=== PATIENT | male | born 1965 ===

== ENCOUNTER → 2018-09-12 | Outpatient (CLI) | payer SELFPAY | END | disposition home or self-care (01) | LOC: LAB SHORT 14:08 → LAB UCHC 14:08 | DX: E11.65 Type 2 diabetes mellitus with hyperglycemia (principal) | CPT/HCPCS: 82043 ==

== ENCOUNTER → 2019-12-21 | Outpatient (CLI) | payer BC ==
[2019-12-21 18:52] LABS: BASOPHILS ABSOLUTE AUTO 0.03 K/mm3 (0.00-0.23); BASOPHILS PERCENT AUTO 0 % (0-2); EOSINOPHILS ABSOLUTE AUTO 0.28 K/mm3 (0.00-0.68); EOSINOPHILS PERCENT AUTO 3 % (0-6); Hematocrit 41.6 % (37.0-53.0); Hemoglobin 13.9 g/dL (13.5-17.5); IMMATURE GRAN ABSOLUTE AUTO 0.02 K/mm3 (0.00-0.10); IMMATURE GRAN PERCENT AUTO 0 % (0-1); LYMPHOCYTES ABSOLUTE AUTO 3.46 K/mm3 (0.84-5.20); LYMPHOCYTES PERCENT AUTO 35 % (21-46); MONOCYTES ABSOLUTE AUTO 0.82 K/mm3 (0.16-1.47); MONOCYTES PERCENT AUTO 8 % (4-13); Mean Corpuscular HGB Conc 33.4 g/dL (31.5-36.5); Mean Corpuscular Volume 90 fL (80-100); Mean Platelet Volume 12.2 fL (9.1-12.4); NEUTROPHILS ABSOLUTE AUTO 5.28 K/mm3 (1.96-9.15); NEUTROPHILS PERCENT AUTO 53 % (41-73); Platelet Count 277 K/mm3 (150-400); RDW Coefficient Variation 12.1 % (11.7-14.2); RDW Standard Deviation 39.8 fL (35.1-46.3); Red Blood Cell Count 4.63 M/mm3 (4.30-5.90); White Blood Cell Count 9.89 K/mm3 (4.00-11.30)
[2019-12-21 19:02] LABS: Alanine Aminotransfer (ALT/SGP 47 U/L (12-78); Albumin, Blood 3.9 g/dL (3.4-5.0); Alk Phos 102 U/L (50-136); Anion Gap 4 mmol/L (6-16); Aspartate Aminotrans (AST/SGOT 22 U/L (12-37); Bilirubin, Total 0.2 mg/dL (0.1-1.0); Blood Urea Nitrogen 15 mg/dL (8-24); Bun/Creatinine Ratio 23.4 (12.0-20.0); CHOL/HDL RATIO 3.5; CO2, Blood 29 mmol/L (21-32); Calcium, Blood 9.5 mg/dL (8.5-10.1); Chloride, Blood 105 mmol/L (98-108); Cholesterol 180 mg/dL (50-200); Creatinine, Blood 0.64 mg/dL (0.60-1.20); Globulin, Blood 3.9 g/dL (2.2-4.0); Glomerular Filtration Rate >60 (60-); Glucose, Blood 107 mg/dL (70-99); HDL Cholesterol 52 mg/dL (>39); Low Density Lipoprotein Chol 106 mg/dL (0-110); Potassium, Blood 3.9 mmol/L (3.5-5.5); Sodium, Blood 138 mmol/L (136-145); Total Protein, Blood 7.8 g/dL (6.4-8.2); Triglycerides 112 mg/dL (30-160); Very Low Density Lipoprot Chol 22 mg/dL (6-32)
== END | disposition home or self-care (01) ==
LOC: LAB SHORT 18:17 → LAB 18:17 → LAB FUT 12-20 16:30 → EDSTATUS 12-20 16:30
PROVIDERS: Family Medicine
DX: E11.22 Type 2 diabetes mellitus with diabetic chronic kidney disease (principal); N18.9 Chronic kidney disease, unspecified
CPT/HCPCS: 80053; 80061; 85025

== ENCOUNTER → 2021-06-26 | Outpatient (CLI) | payer BC ==
[2021-06-26 19:48] LABS: Alanine Aminotransfer (ALT/SGP 34 U/L (12-78); Albumin, Blood 3.2 g/dL (3.4-5.0); Albumin/Globulin Ratio 0.8 (0.8-1.8); Alk Phos 116 U/L (50-136); Anion Gap 8 mmol/L (6-16); Aspartate Aminotrans (AST/SGOT 20 U/L (12-37); Bilirubin, Total 0.2 mg/dL (0.1-1.0); Blood Urea Nitrogen 23 mg/dL (8-24); Bun/Creatinine Ratio 24.7 (12.0-20.0); CHOL/HDL RATIO 3.8; CO2, Blood 26 mmol/L (21-32); Chloride, Blood 103 mmol/L (98-108); Cholesterol 214 mg/dL (50-200); Creatinine, Blood 0.93 mg/dL (0.60-1.20); Globulin, Blood 3.9 g/dL (2.2-4.0); Glomerular Filtration Rate >60 (60-); Glucose, Blood 291 mg/dL (70-99); HDL Cholesterol 56 mg/dL (>39); LDL/HDL RATIO 1.7; Low Density Lipoprotein Chol 97 mg/dL (0-110); Potassium, Blood 4.2 mmol/L (3.5-5.5); Sodium, Blood 137 mmol/L (136-145); Total Protein, Blood 7.1 g/dL (6.4-8.2); Triglycerides 306 mg/dL (30-160); Very Low Density Lipoprot Chol 61 mg/dL (6-32)
== END | disposition home or self-care (01) ==
LOC: LAB SHORT 17:56
PROVIDERS: Student in an Organized Health Care Education/Training Program
DX: E11.65 Type 2 diabetes mellitus with hyperglycemia (principal); E11.22 Type 2 diabetes mellitus with diabetic chronic kidney disease; N18.9 Chronic kidney disease, unspecified; E78.5 Hyperlipidemia, unspecified
CPT/HCPCS: 80053; 80061; 82043

== ENCOUNTER 2021-10-03 16:08 | Emergency (ER) | payer SELFPAY ==
[~2021-10-03] VITALS: Ht 157.5 cm; Wt 59.0 kg
[2021-10-03] MEDS ORDERED: Tylenol325 MG PO (18:01)
== END 2021-10-03 18:18 | disposition home or self-care (01) ==
LOC: ER 16:08
DX: J02.8 Acute pharyngitis due to other specified organisms (principal)
CPT/HCPCS: 87081; 87430; 99283

== ENCOUNTER → 2022-05-09 | Outpatient (CLI) | payer BC ==
[~2022-05-09] MED LIST: GLIP2.5ER; METFORMIN HCL500 M2 PO; Tylenol325 MG PO
== END | disposition home or self-care (01) ==
LOC: LAB 15:48 → LAB SHORT 15:48
DX: R30.9 Painful micturition, unspecified (principal)
CPT/HCPCS: 87086

== ENCOUNTER 2022-05-14 17:33 | Inpatient (IN) | payer BC ==
[~2022-05-14] VITALS: Ht 157.5 cm; Wt 53.5 kg
[~2022-05-14 17:33] MED LIST changes: -GLIP2.5ER; -METFORMIN HCL500 M2 PO
[2022-05-14 18:17] LABS: Hematocrit 31.1 % (37.0-53.0); Hemoglobin 10.7 g/dL (13.5-17.5); Mean Corpuscular HGB 30.7 pg (26.0-34.0); Mean Corpuscular HGB Conc 34.4 g/dL (31.5-36.5); Mean Corpuscular Volume 89 fL (80-100); Mean Platelet Volume 10.9 fL (9.1-12.4); Platelet Count 426 K/mm3 (150-400); RDW Coefficient Variation 11.8 % (11.7-14.2); RDW Standard Deviation 37.9 fL (35.1-46.3); Red Blood Cell Count 3.49 M/mm3 (4.30-5.90)
[2022-05-14 18:39] LABS: Albumin, Blood 2.5 g/dL (3.4-5.0); Albumin/Globulin Ratio 0.5 (0.8-1.8); Bilirubin, Total 0.2 mg/dL (0.1-1.0); Bun/Creatinine Ratio 21.1 (12.0-20.0); Calcium, Blood 9.1 mg/dL (8.5-10.1); Creatinine, Blood 1.28 mg/dL (0.60-1.20); Globulin, Blood 5.3 g/dL (2.2-4.0); Potassium, Blood 5.1 mmol/L (3.5-5.5); Total Protein, Blood 7.8 g/dL (6.4-8.2)
[2022-05-14 18:50] LABS: White Blood Cell Count 20.24 K/mm3 (4.00-11.30)
[2022-05-14 18:53] LABS: BAND PERCENT MAN 5 % (0-8); BASOPHILS PERCENT MAN 0 % (0-2); EOSINOPHILS PERCENT MAN 0 % (0-6); LYMPHOCYTES ABSOLUTE MAN 1.82 K/mm3 (0.84-5.20); LYMPHOCYTES PERCENT MAN 9 % (21-46); MONOCYTES ABSOLUTE MAN 1.21 K/mm3 (0.16-1.47); MONOCYTES PERCENT MAN 6 % (4-13); SEG NEUTROPHILS PERCENT MAN 80 % (41-73); TOTAL CELLS COUNTED 200
[2022-05-14 18:54] LABS: OTHER CELL PERCENT MAN 1 % (0-0)
[2022-05-14 22:09] LABS: Influenza A, PCR NEGATIVE (NEGATIVE); Influenza B, PCR NEGATIVE (NEGATIVE); Resp Syncytial Virus, PCR NEGATIVE (NEGATIVE); SARS-Cov-2 (COVID-19) PCR, MMC NEGATIVE (NEGATIVE)
[2022-05-14] MEDS ORDERED: METFORMIN HCL500 M2 PO (22:17)
[2022-05-14] MEDS ORDERED: GLIP2.5ER (22:17)
--- NOTE | 2022-05-14 22:37 | NUR ---
05/14/22 2237 Minnie Dodge NO PREOP ANTIBIOTICS ORDERED PER PATIENT IS ON ANTIBIOTICS.
[2022-05-15 05:08] LABS: BASOPHILS ABSOLUTE AUTO 0.02 K/mm3 (0.00-0.23); BASOPHILS PERCENT AUTO 0 % (0-2); EOSINOPHILS PERCENT AUTO 0 % (0-6); Hematocrit 27.5 % (37.0-53.0); Hemoglobin 9.5 g/dL (13.5-17.5); IMMATURE GRAN PERCENT AUTO 1 % (0-1); LYMPHOCYTES ABSOLUTE AUTO 0.77 K/mm3 (0.84-5.20); LYMPHOCYTES PERCENT AUTO 5 % (21-46); MONOCYTES ABSOLUTE AUTO 0.12 K/mm3 (0.16-1.47); MONOCYTES PERCENT AUTO 1 % (4-13); Mean Corpuscular HGB 30.9 pg (26.0-34.0); Mean Corpuscular HGB Conc 34.5 g/dL (31.5-36.5); Mean Corpuscular Volume 90 fL (80-100); Mean Platelet Volume 11.2 fL (9.1-12.4); NEUTROPHILS ABSOLUTE AUTO 13.21 K/mm3 (1.96-9.15); NEUTROPHILS PERCENT AUTO 93 % (41-73); Platelet Count 444 K/mm3 (150-400); RDW Coefficient Variation 11.9 % (11.7-14.2); RDW Standard Deviation 38.1 fL (35.1-46.3); Red Blood Cell Count 3.07 M/mm3 (4.30-5.90); White Blood Cell Count 14.22 K/mm3 (4.00-11.30)
[2022-05-15 05:31] LABS: Bun/Creatinine Ratio 22.4 (12.0-20.0); Calcium, Blood 8.1 mg/dL (8.5-10.1); Creatinine, Blood 1.16 mg/dL (0.60-1.20); Potassium, Blood 5.3 mmol/L (3.5-5.5)
--- NOTE | 2022-05-15 06:05 | NUR ---
SHIFT SUMMARY: PT IS ALERT AND ORIENTED. PT IS CALM AND COOPERATIVE WITH CARE. PT IS GUAMANIAN SPEAKING, STOCK CONTROL SUPERVISOR PHONE IN ROOM. PT DENIES PAIN, NAUSEA, VOMITING, AND SOB. PT ORDERED NON-WEIGHT BEARING ON L. FOOT, NOT OUT OF BED OVERNIGHT. FLUIDS RUNNING ORDERED. PT SLEPT MUCH OF THE NIGHT WHEN NOT DISTURBED. NO ACUTE CHANGES OR COMPLICATIONS THIS SHIFT. WILL CONTINUE TO MONITOR.
--- NOTE | 2022-05-15 07:33 | NUR ---
ASSUMED CARE: PT ALERT IN ROOM, RESTING IN BED. CAY[place] ISLANDER SPEAKING ONLY, APPEARS TO UNDERSTAND SOME MONGOLIAN. NO ACUTE NEEDS AT THIS TIME.
--- NOTE | 2022-05-15 16:47 | NUR ---
DR ANGEL CAME TO SEE PT AND CHANGED DRESSING TO LEFT FOOT. STATES HE WANTS PT ON IV ABX UNTIL WOUND CULTURES COME BACK AND THEN 1 MONTH OF ORAL ANTIBIOTICS AFTER THAT. TOLD PT NO WORK FOR 1 MONTH AND TO FOLLOW UP IN HIS OFFICE 1 WEEK AFTER DISCHARGE. THESE INSTRUCTIONS WERE EXPLAINED TO PT WITH THE BEAD FORMING MACHINE OPERATOR PHONE AND RELAYED TO DR BIRD.
--- NOTE | 2022-05-15 18:46 | NUR ---
SHIFT SUMMARY: PT MEDICATED X1 WITH TYLENOL FOR PAIN AND STATES IMPROVEMENT. DR ANGEL CAME TO SEE PT AND STATES DC ON ORAL ABX AFTER WOUND CULTURES COME BACK. FAMILY AT BEDSIDE. HUMAN RESOURCES DESIGNATE PHONE USED T/O DAY NEEDED. DENIES NEEDS OR CONCERNS.
--- NOTE | 2022-05-16 06:17 | NUR ---
SHIFT SUMMARY: PT IS ALERT AND ORIENTED, ALGERIAN SPEAKING ONLY. PT IS CALM AND COOPERATIVE WITH CARE. PT CALLS APPROPRIATELY. PT IS UP INDEPENDENTLY AND CONTINUES TO DO WELL NOT BEARING WEIGHT ON THE L. FOOT. PT DENIES NAUSEA, VOMITING, AND SOB. NO ACUTE CHANGES OR COMPLICATIONS THIS SHIFT. BED IN LOW POSITION, CALL LIGHT WITHIN REACH. WILL REPORT TO DAY NURSE.
--- NOTE | 2022-05-16 17:56 | NUR ---
PT IS AOX4 AND COOPERATIVE OF CARE. PT DOING WELL WALKING WITH WALKER INDEPENDENTLY TO RESTROOM. DENIES PAIN MEDS WHEN OFFERED. CALL LIGHT IS WITHIN REACH WILL CONIINUEO TO MONITOR.
--- NOTE | 2022-05-17 06:11 | NUR ---
SHIFT SUMMARY PATIENT ALERT AND ORIENTED. HAD NO COMPLAINTS OF PAIN OR SHORTNESS OF BREATH. NO ACUTE ISSUES NOTED OVERNIGHT. CALL LIGHT WITHIN REACH. REPORT GIVEN TO ONCOMING RN.
[2022-05-17] MEDS ORDERED: CLIN300 PO (15:09)
[2022-05-17] MEDS ORDERED: SEMGLEE (Y100 UNIT/2 SC (15:10)
[2022-05-17] MEDS ORDERED: VISBIOME 112.51 EACH PO (15:11)
--- NOTE | 2022-05-17 18:27 | NUR ---
PT DISCHARGED AT 1834 VIA WHEELCHAIR. PT IS TO DRIVE HIMSELF HOME. PT IS [place]AM[place] SPEAKING AND TAXI DRIVER PHONE WAS USED TO GO OVER MEDICATIONS AND INSTRUCTIONS ABOUT INSULIN. PT WAS ALSO SENT WITH A COPY OF PT INSTRUTIONS IN [place]. PT DENIED NEED FOR ANY PAIN MEDICAITON TODAY. NO DISTRESS NOTED. PT ESCORTED OUT VIA WHEELCHAIR BY AID.
== END 2022-05-17 18:41 | disposition home or self-care (01) | DRG 239 ==
LOC: ER 17:33 → MEDS 17:34
PROVIDERS: Physician Assistant; Podiatrist Foot & Ankle Surgery; Student in an Organized Health Care Education/Training Program; ADMIT Family Medicine
PROC: 0Y6N0Z9 Detachment at Left Foot, Partial 1st Ray, Open Approach (ICD-10-PCS; principal; 2022-05-14 21:30)
DX: E11.52 Type 2 diabetes mellitus with diabetic peripheral angiopathy with gangrene (principal); A48.0 Gas gangrene; N17.9 Acute kidney failure, unspecified; E87.1 Hypo-osmolality and hyponatremia; E11.65 Type 2 diabetes mellitus with hyperglycemia; D75.839 Thrombocytosis, unspecified; Z20.822 Contact with and (suspected) exposure to COVID-19; B95.7 Other staphylococcus as the cause of diseases classified elsewhere; B96.89 Other specified bacterial agents as the cause of diseases classified elsewhere; B95.4 Other streptococcus as the cause of diseases classified elsewhere; D72.829 Elevated white blood cell count, unspecified; D64.9 Anemia, unspecified; Z79.899 Other long term (current) drug therapy
CPT/HCPCS: 0241U; 36415; 73660; 80048; 80053; 82947; 83605; 85025; 87040; 87070; 87071; 87075; 87076; 87077; 87185; 87186; 87205; 88305; 94760; 96365; 96366; 96368; 97116; 97161; 99285-25; A9270; J1100; J1815; J2370; J2405; J2543; J2704; J2795; J3010; J3370; J7120

== ENCOUNTER → 2022-05-25 | Outpatient (CLI) | payer BC ==
[~2022-05-25] MED LIST changes: +CLIN300 PO; +GLIP2.5ER; +METFORMIN HCL500 M2 PO; +SEMGLEE (Y100 UNIT/2 SC; +VISBIOME 112.51 EACH PO
[2022-05-25 14:21] LABS: Bun/Creatinine Ratio 17.3 (12.0-20.0); Calcium, Blood 9.2 mg/dL (8.5-10.1); Creatinine, Blood 1.56 mg/dL (0.60-1.20); Potassium, Blood 5.5 mmol/L (3.5-5.5)
== END | disposition home or self-care (01) ==
LOC: LAB SHORT 13:11
PROVIDERS: Chiropractor
DX: E11.65 Type 2 diabetes mellitus with hyperglycemia (principal)
CPT/HCPCS: 80048; 83036

== ENCOUNTER 2022-08-10 00:22 | Day surgery (SDC) | payer BC | END 2022-08-10 22:51 | disposition home or self-care (01) | LOC: WOUND 00:22 | DX: T87.81 Dehiscence of amputation stump (principal); E11.21 Type 2 diabetes mellitus with diabetic nephropathy; E11.621 Type 2 diabetes mellitus with foot ulcer; I10 Essential (primary) hypertension; E11.51 Type 2 diabetes mellitus with diabetic peripheral angiopathy without gangrene | CPT/HCPCS: A9270; G0463 ==

== ENCOUNTER 2022-08-14 03:34 | Day surgery (SDC) | payer BC | END 2022-08-14 22:44 | disposition home or self-care (01) | LOC: WOUND 03:34 | DX: T87.81 Dehiscence of amputation stump (principal); E11.21 Type 2 diabetes mellitus with diabetic nephropathy; I10 Essential (primary) hypertension; E11.51 Type 2 diabetes mellitus with diabetic peripheral angiopathy without gangrene; I87.2 Venous insufficiency (chronic) (peripheral) | CPT/HCPCS: A9270; G0463 ==

== ENCOUNTER 2022-08-21 00:20 | Day surgery (SDC) | payer BC | END 2022-08-21 22:59 | disposition home or self-care (01) | LOC: WOUND 00:20 | DX: T87.81 Dehiscence of amputation stump (principal); Y84.8 Other medical procedures as the cause of abnormal reaction of the patient, or of later complication, without mention of misadventure at the time of the procedure; E11.621 Type 2 diabetes mellitus with foot ulcer; E11.21 Type 2 diabetes mellitus with diabetic nephropathy; I10 Essential (primary) hypertension; E11.51 Type 2 diabetes mellitus with diabetic peripheral angiopathy without gangrene | CPT/HCPCS: A9270; G0463 ==

== ENCOUNTER 2022-08-28 01:48 | Day surgery (SDC) | payer BC | END 2022-08-28 23:06 | disposition home or self-care (01) | LOC: WOUND 01:48 | DX: T87.81 Dehiscence of amputation stump (principal); Z89.422 Acquired absence of other left toe(s); E11.621 Type 2 diabetes mellitus with foot ulcer; E11.21 Type 2 diabetes mellitus with diabetic nephropathy; I10 Essential (primary) hypertension; E11.51 Type 2 diabetes mellitus with diabetic peripheral angiopathy without gangrene | CPT/HCPCS: A9270; G0463 ==

== ENCOUNTER 2022-09-05 02:01 | Day surgery (SDC) | payer BC | END 2022-09-05 22:56 | disposition home or self-care (01) | LOC: WOUND 02:01 | DX: T87.81 Dehiscence of amputation stump (principal); E11.621 Type 2 diabetes mellitus with foot ulcer; E11.21 Type 2 diabetes mellitus with diabetic nephropathy; I10 Essential (primary) hypertension; E11.51 Type 2 diabetes mellitus with diabetic peripheral angiopathy without gangrene | CPT/HCPCS: A9270 ==

== ENCOUNTER 2022-09-12 01:13 | Day surgery (SDC) | payer BC | END 2022-09-13 00:02 | disposition home or self-care (01) | LOC: WOUND 01:13 | DX: E11.621 Type 2 diabetes mellitus with foot ulcer (principal); E11.21 Type 2 diabetes mellitus with diabetic nephropathy; I10 Essential (primary) hypertension; E11.51 Type 2 diabetes mellitus with diabetic peripheral angiopathy without gangrene; T87.81 Dehiscence of amputation stump | CPT/HCPCS: A9270 ==

== ENCOUNTER 2022-09-25 01:33 | Day surgery (SDC) | payer BC | END 2022-09-25 22:47 | disposition home or self-care (01) | LOC: WOUND 01:33 | DX: E11.621 Type 2 diabetes mellitus with foot ulcer (principal); L97.522 Non-pressure chronic ulcer of other part of left foot with fat layer exposed; T87.81 Dehiscence of amputation stump; S98.112D Complete traumatic amputation of left great toe, subsequent encounter; E11.21 Type 2 diabetes mellitus with diabetic nephropathy; E11.59 Type 2 diabetes mellitus with other circulatory complications; E11.51 Type 2 diabetes mellitus with diabetic peripheral angiopathy without gangrene; I10 Essential (primary) hypertension | CPT/HCPCS: A9270 ==

== ENCOUNTER 2022-11-27 00:33 | Day surgery (SDC) | payer OTHER | END 2022-11-27 23:05 | disposition home or self-care (01) | LOC: WOUND 00:33 | DX: T87.81 Dehiscence of amputation stump (principal); E11.621 Type 2 diabetes mellitus with foot ulcer; E11.21 Type 2 diabetes mellitus with diabetic nephropathy; I10 Essential (primary) hypertension; E11.51 Type 2 diabetes mellitus with diabetic peripheral angiopathy without gangrene | CPT/HCPCS: A9270; G0463 ==

== ENCOUNTER 2022-12-11 02:14 | Day surgery (SDC) | payer OTHER | END 2022-12-11 22:49 | disposition home or self-care (01) | LOC: WOUND 02:14 | DX: E11.621 Type 2 diabetes mellitus with foot ulcer (principal); L97.529 Non-pressure chronic ulcer of other part of left foot with unspecified severity | CPT/HCPCS: A9270; G0463 ==

== ENCOUNTER 2023-01-08 02:17 | Day surgery (SDC) | payer OTHER | END 2023-01-08 22:49 | disposition home or self-care (01) | LOC: WOUND 02:17 | DX: T87.81 Dehiscence of amputation stump (principal); E11.621 Type 2 diabetes mellitus with foot ulcer; L97.522 Non-pressure chronic ulcer of other part of left foot with fat layer exposed; E11.21 Type 2 diabetes mellitus with diabetic nephropathy; I10 Essential (primary) hypertension; I73.9 Peripheral vascular disease, unspecified; E11.59 Type 2 diabetes mellitus with other circulatory complications; E11.69 Type 2 diabetes mellitus with other specified complication; M86.672 Other chronic osteomyelitis, left ankle and foot; Y83.5 Amputation of limb(s) as the cause of abnormal reaction of the patient, or of later complication, without mention of misadventure at the time of the procedure | CPT/HCPCS: A9270 ==

== ENCOUNTER 2023-02-06 00:07 | Day surgery (SDC) | payer OTHER | END 2023-02-06 23:09 | disposition home or self-care (01) | LOC: WOUND 00:07 | DX: E11.621 Type 2 diabetes mellitus with foot ulcer (principal); L97.522 Non-pressure chronic ulcer of other part of left foot with fat layer exposed; T81.31XS Disruption of external operation (surgical) wound, not elsewhere classified, sequela; Y83.8 Other surgical procedures as the cause of abnormal reaction of the patient, or of later complication, without mention of misadventure at the time of the procedure; I10 Essential (primary) hypertension; E11.21 Type 2 diabetes mellitus with diabetic nephropathy; E11.51 Type 2 diabetes mellitus with diabetic peripheral angiopathy without gangrene; E11.59 Type 2 diabetes mellitus with other circulatory complications; E11.69 Type 2 diabetes mellitus with other specified complication; M86.672 Other chronic osteomyelitis, left ankle and foot | CPT/HCPCS: A9270; G0463 ==

== ENCOUNTER 2023-02-22 03:57 | Day surgery (SDC) | payer OTHER | END 2023-02-25 23:12 | disposition home or self-care (01) | LOC: WOUND 03:57 | DX: T87.81 Dehiscence of amputation stump (principal); E11.621 Type 2 diabetes mellitus with foot ulcer; L97.522 Non-pressure chronic ulcer of other part of left foot with fat layer exposed; E11.21 Type 2 diabetes mellitus with diabetic nephropathy; I10 Essential (primary) hypertension; I73.9 Peripheral vascular disease, unspecified; E11.59 Type 2 diabetes mellitus with other circulatory complications; M86.672 Other chronic osteomyelitis, left ankle and foot; Y83.5 Amputation of limb(s) as the cause of abnormal reaction of the patient, or of later complication, without mention of misadventure at the time of the procedure | CPT/HCPCS: G0463 ==

== ENCOUNTER 2024-01-05 14:05 | Inpatient (IN) | payer OTHER ==
[~2024-01-05] VITALS: Ht 152.4 cm; Wt 62.7 kg
[~2024-01-05 14:05] MED LIST changes: -ATOR40TA PO; -B-COMPLEX WITH1 EACH PO; -CATAPRES0.1 MG PO; -Calcium Acetat667 MG PO; -LOSA50 PO; -MELA3 PO; -MIRALAX17 GM PO
[2024-01-05] MEDS ORDERED: Nitroglycerin 1 INCH/GM PKT TOP ONE (14:25)
[2024-01-05 14:40] LABS: Source, Urine Clean Catch
[2024-01-05 14:45] LABS: Appearance, Urine Clear (Clear); Bilirubin, Urine Neg (Neg); Blood, Urine 3+ (Neg); Glucose Qualitative, Urine 2+ (Neg); Ketones, Urine 1+ (Neg); Leukocyte Esterase, Urine Neg (Neg); Nitrite, Urine Neg (Neg); Protein, Urine 4+ (Neg); Urobilinogen, Urine NORM (Normal)
[2024-01-05] MEDS ORDERED: Acetaminophen 325 MG TABLET PO PRN (14:45)
[2024-01-05] MEDS ORDERED: Ondansetron 4 MG TAB PO PRN (14:45)
[2024-01-05 14:56] LABS: Color, Urine Pale Yellow (P-Yellow)
[2024-01-05 14:59] LABS: Bacteria Rare /hpf; Squamous Epithelial Cells Rare /hpf (Few); White Blood Cells, Urine 0-2 /hpf (0-5)
[2024-01-05] MEDS ORDERED: Labetalol HCL 5 MG/ML 4ML Injection (Single Dose) IV ONE (15:40)
[2024-01-05] MEDS ORDERED: Furosemide 10 MG / ML 2ML Vial IV ONE (15:40)
[2024-01-05] MEDS ORDERED: HydrALAZINE HCl 20 MG / ML 1ML Vial IV PRN (17:15)
[2024-01-05 19:25] VITALS: BP 176/77
[2024-01-05] MEDS ORDERED: Insulin Glargine-Yfgn 100 Unit/mL 3 ML SYR SC SCH (21:00)
[2024-01-05 21:20] VITALS: BP 161/77
[2024-01-06 03:56] VITALS: BP 147/68
[2024-01-06 05:14] LABS: BASOPHILS ABSOLUTE AUTO 0.02 K/mm3 (0.00-0.23); BASOPHILS PERCENT AUTO 0 % (0-2); EOSINOPHILS ABSOLUTE AUTO 0.08 K/mm3 (0.00-0.68); EOSINOPHILS PERCENT AUTO 1 % (0-6); Hematocrit 24.3 % (37.0-53.0); Hemoglobin 7.9 g/dL (13.5-17.5); IMMATURE GRAN ABSOLUTE AUTO 0.03 K/mm3 (0.00-0.10); IMMATURE GRAN PERCENT AUTO 0 % (0-1); LYMPHOCYTES ABSOLUTE AUTO 1.51 K/mm3 (0.84-5.20); LYMPHOCYTES PERCENT AUTO 16 % (21-46); MONOCYTES ABSOLUTE AUTO 1.04 K/mm3 (0.16-1.47); MONOCYTES PERCENT AUTO 11 % (4-13); Mean Corpuscular HGB 30.2 pg (26.0-34.0); Mean Corpuscular HGB Conc 32.5 g/dL (31.5-36.5); Mean Corpuscular Volume 93 fL (80-100); Mean Platelet Volume 12.3 fL (9.1-12.4); NEUTROPHILS ABSOLUTE AUTO 6.82 K/mm3 (1.96-9.15); NEUTROPHILS PERCENT AUTO 72 % (41-73); Platelet Count 265 K/mm3 (150-400); RDW Coefficient Variation 12.6 % (11.7-14.2); Red Blood Cell Count 2.62 M/mm3 (4.30-5.90)
[2024-01-06 05:49] LABS: Magnesium, Blood 2.1 mg/dL (1.6-2.4)
[2024-01-06 05:52] LABS: Albumin, Blood 2.3 g/dL (3.4-5.0); Albumin/Globulin Ratio 0.7 (0.8-1.8); Bilirubin, Total 0.3 mg/dL (0.1-1.0); Bun/Creatinine Ratio 12.2 (12.0-20.0); Calcium, Blood 8.4 mg/dL (8.5-10.1); Creatinine, Blood 6.87 mg/dL (0.60-1.20); Globulin, Blood 3.5 g/dL (2.2-4.0); Potassium, Blood 4.3 mmol/L (3.5-5.5); Total Protein, Blood 5.8 g/dL (6.4-8.2)
--- NOTE | 2024-01-06 06:05 | NUR ---
PT A&OX4 AND ANSWERS QUESTIONS APPROPRIATELY. PT PRIMARILY [place]I SPEAKING, INTERPRETING PHONE IN ROOM. PT EXPERIENCING HTN AND MEDICATED PER EMAR WITH HYDRALAZINE. PT IS COOPERATIVE WITH CARE. NO COMPLAINTS OF SOB OR CP. REMAINING VITAL SIGNS STABLE. PT HAD A CRITICAL GLUCOSE OF 47 AT AROUND 0550. JUICCE AND CHEESE GIVEN, ALERTED AND ORDERS PUT IN FOR HYPOGLYCEMIA. NO ACUTE EVENTS AT THIS TIME, CALL LIGHT IN REACH.
[2024-01-06] MEDS ORDERED: Dextrose 5% 250 ML IV ONE (07:00)
[2024-01-06 07:41] VITALS: BP 159/79
[2024-01-06] MEDS ORDERED: Heparin Sodium,Porcine 5,000 UNIT/0.5 ML SDV SC SCH (09:00)
[2024-01-06] MEDS ORDERED: Atorvastatin 40 MG Tab PO SCH (09:00)
[2024-01-06] MEDS ORDERED: Enoxaparin 40 MG/0.4 ML SYR SC SCH (09:00)
[2024-01-06] MEDS ORDERED: D5W-NS 1,000 ML IV SCH (09:20)
[2024-01-06 15:45] VITALS: BP 188/86
--- NOTE | 2024-01-06 16:44 | NUR ---
SHIFT SUMMARY PATIENT IS AOX4, HEBREW SPEAKING USING SPARKER AND PATCHER PHONE. PATIENT IS ABLE TO VOID INDEP IN BR, 24 HOUR URINE CATCH IS IN EFFECT. PATIENT TOELRATES PO INTAKE. SHOWERED TODAY. IV FLUIDS D5NS RUNNING @75/HR. PATIENT DID HAVE GLUCOSE OF 67 THIS AM FLUIDS WERE ORDERED. AFTER FLUIDS AND EATING BREAKFAST GLUCOSE HAS MAINTAINED ABOUT 190'S. UPDATED DR. MORRSI AND ORDER TO CHANGE GLARGINE TO 5 UNITS AT BEDTIME RECIEVED. PATIENT HAS FRIENDS VISIT THIS AFTERNOON AND ASKED ABOUT DIET FOR DIABETIC PATIENT. DIETARY WAS ABLE TO BRING SOME PRINT OUT INFORMATION IN HEBREW FOR PATIENT AND FAMILY TO READ. BP THIS AFTERNOON ELEVATED OVER 180, HYDRALAZINE GIVEN REPEAT BP STABLE . CALL LIGHT IN REACH AND EDUCATED ON USE.
[2024-01-06 20:21] VITALS: BP 173/76
[2024-01-06] MEDS ORDERED: Insulin Glargine-Yfgn 100 Unit/mL 3 ML SYR SC SCH (21:00)
[2024-01-07 02:37] VITALS: BP 163/70
--- NOTE | 2024-01-07 04:52 | NUR ---
SHIFT SUMMARY PT A&OX4 AND ANSWERS QUESTIONS APPROPRIATELY. PT RECEIVED HYDRALAZINE X2 DURING SHIFT PRN FOR HTN OF SYSTOLIC OVER 160. 5 UNITS OF GLARGINE GIVEN, BLOOD SUGAR RECHECKED AROUND 0330 DUE TO PREVIOUS HYPOGLYCEMIA THE NIGHT BEFORE. PT CBG WNL. PT SPENT MOST OF NIGHT WITH EYES CLOSED AND RESPIRATIONS EVEN AND UNLABORED. NO COMPLAINTS OF CP OR SOB. REMAINING VSS. NO ACUTE EVENTS AT THIS TIME. FALL PRECAUTIONS IN PLACE AND CALL LIGHT IN REACH.
[2024-01-07 05:15] LABS: BASOPHILS ABSOLUTE AUTO 0.03 K/mm3 (0.00-0.23); BASOPHILS PERCENT AUTO 0 % (0-2); EOSINOPHILS ABSOLUTE AUTO 0.26 K/mm3 (0.00-0.68); EOSINOPHILS PERCENT AUTO 3 % (0-6); Hematocrit 24.9 % (37.0-53.0); IMMATURE GRAN ABSOLUTE AUTO 0.02 K/mm3 (0.00-0.10); IMMATURE GRAN PERCENT AUTO 0 % (0-1); LYMPHOCYTES ABSOLUTE AUTO 1.66 K/mm3 (0.84-5.20); LYMPHOCYTES PERCENT AUTO 21 % (21-46); MONOCYTES ABSOLUTE AUTO 0.96 K/mm3 (0.16-1.47); MONOCYTES PERCENT AUTO 12 % (4-13); Mean Corpuscular HGB 30.7 pg (26.0-34.0); Mean Corpuscular HGB Conc 32.1 g/dL (31.5-36.5); Mean Corpuscular Volume 95 fL (80-100); Mean Platelet Volume 12.1 fL (9.1-12.4); NEUTROPHILS ABSOLUTE AUTO 5.09 K/mm3 (1.96-9.15); NEUTROPHILS PERCENT AUTO 64 % (41-73); Platelet Count 262 K/mm3 (150-400); RDW Coefficient Variation 12.5 % (11.7-14.2); RDW Standard Deviation 43.6 fL (35.1-46.3); Red Blood Cell Count 2.61 M/mm3 (4.30-5.90); White Blood Cell Count 8.02 K/mm3 (4.00-11.30)
[2024-01-07 06:01] LABS: Albumin, Blood 2.2 g/dL (3.4-5.0); Albumin/Globulin Ratio 0.6 (0.8-1.8); Bilirubin, Total 0.3 mg/dL (0.1-1.0); Bun/Creatinine Ratio 12.3 (12.0-20.0); Creatinine, Blood 7.05 mg/dL (0.60-1.20); Globulin, Blood 3.4 g/dL (2.2-4.0); Magnesium, Blood 1.9 mg/dL (1.6-2.4); Phosphorus, Blood 5.8 mg/dL (2.5-4.9); Potassium, Blood 4.7 mmol/L (3.5-5.5); Thyroid Stimulating Hormone 9.34 uIU/mL (0.360-4.800); Total Protein, Blood 5.6 g/dL (6.4-8.2); Uric Acid, Blood 8.3 mg/dL (3.5-7.2)
[2024-01-07 07:16] VITALS: BP 156/74
--- NOTE | 2024-01-07 11:23 | NUR ---
DR. MORRIS AT THE BEDSIDE USING THE STACK MATCHER PHONE TO COMMUNICATE WITH THE PATIENT
[2024-01-07 16:49] VITALS: BP 194/93
[2024-01-07 17:30] VITALS: BP 191/87
[2024-01-07] MEDS ORDERED: CloNIDine 0.1 MG Tab PO SCH (18:00)
[2024-01-07 18:24] VITALS: BP 207/87
--- NOTE | 2024-01-07 18:42 | NUR ---
PATIENT IS ALERT AND ORIENTED. CITIZEN OF [place] SPEAKING ONLY. COMMUNICATES WITH STAFF THROUGH SOA INTEGRATION ARCHITECT PHONE AT THE BEDSIDE. D5 NS RUNNING AT 50 ML/HR. DR. ROBLES AND DR. MORRIS SAW THE PATIENT TODAY. ON RA. AMBULATES TO THE BATHROOM. 24 HR URINE WAS COLLECTED TODAY. NO C/O SOB. CRACKLES HEARD IN THE LUNG BASES. WILL CONTINUE TO MONITOR
[2024-01-07 19:33] VITALS: BP 146/74
[2024-01-07 19:55] LABS: Protein, Urine Quantitative 513.9 mg/dL (0.0-11.9)
[2024-01-08 03:54] VITALS: BP 174/77
[2024-01-08 05:28] LABS: Hematocrit 22.9 % (37.0-53.0); Hemoglobin 7.5 g/dL (13.5-17.5)
[2024-01-08 06:08] VITALS: BP 148/71
[2024-01-08 06:12] LABS: Albumin, Blood 2.1 g/dL (3.4-5.0); Anion Gap 13 mmol/L (3-11); Blood Urea Nitrogen 84 mg/dL (8-24); Bun/Creatinine Ratio 12.4 (12.0-20.0); CO2, Blood 22 mmol/L (21-32); Chloride, Blood 111 mmol/L (98-108); Glomerular Filtration Rate 9 (60-); Glucose, Blood 168 mg/dL (70-99); Phosphorus, Blood 6.5 mg/dL (2.5-4.9); Potassium, Blood 4.9 mmol/L (3.5-5.5); Sodium, Blood 141 mmol/L (136-145)
[2024-01-08] MEDS ORDERED: D5W-NS 1,000 ML IV SCH (06:35)
--- NOTE | 2024-01-08 07:29 | NUR ---
SHIFT SUMMARY PATIENT SLEPT IN LONG INTERVALS, IVF at 50ml/hr MEDICATED FOR ELEVATED BP WITH APRESOLINE 10 MG X 1. HAD HS SNACK, AND UP TO BR TO OID, PATIENT STILL HAS HIS PANTS WITH A BELT ON, DOES NOT WANT TO TAKE THEM OFF.
[2024-01-08 07:42] VITALS: BP 152/69
[2024-01-08 15:12] VITALS: BP 167/78
[2024-01-08] MEDS ORDERED: NS 1,000 ML IV SCH (19:40)
--- NOTE | 2024-01-08 19:43 | NUR ---
REPORT RECEIVED VERIFED PT A/O VSS , VERY PLEASENT BUT SPEAKS KYRGYZ SO PT NOT VERY OPEN TO SPEAKING ABOUT ISSUES. I WAS ABLE TO SPEAK KYRGYZ TO PT AND TRANSLATE FGOR ABOUT PT CONDITION, PT WANTED TO LEAVE BECASUE HE NOW FELT FINE BUT I ENC PT TO STAY UNTIL THEY HELP HIS KIDNEY FUNCTION. PT AGREEDED TO STAY FOR LONG IT TAKES. PT HAS BEEN APPROPRIATE AND ABLE TO MAKE NEEDS KNOWN
[2024-01-08 20:05] VITALS: BP 151/71
[2024-01-08] MEDS ORDERED: Insulin Glargine-Yfgn 100 Unit/mL 3 ML SYR SC SCH (21:00)
[2024-01-09] VITALS (7 sets, daily range): BP systolic 152–182; BP diastolic 60–78
--- NOTE | 2024-01-09 04:23 | NUR ---
SHIFT SUMMARY PATIENT SLEPT WELL, DID NOT REQUIRE APRESOLINE PRN FOR HIGH BP. IV FLUIDS INFUSING ALL NIGHT.
[2024-01-09 05:29] LABS: BASOPHILS ABSOLUTE AUTO 0.01 K/mm3 (0.00-0.23); BASOPHILS PERCENT AUTO 0 % (0-2); EOSINOPHILS ABSOLUTE AUTO 0.34 K/mm3 (0.00-0.68); EOSINOPHILS PERCENT AUTO 5 % (0-6); Hematocrit 22.1 % (37.0-53.0); Hemoglobin 7.3 g/dL (13.5-17.5); IMMATURE GRAN ABSOLUTE AUTO 0.02 K/mm3 (0.00-0.10); IMMATURE GRAN PERCENT AUTO 0 % (0-1); LYMPHOCYTES ABSOLUTE AUTO 1.42 K/mm3 (0.84-5.20); LYMPHOCYTES PERCENT AUTO 19 % (21-46); MONOCYTES ABSOLUTE AUTO 0.47 K/mm3 (0.16-1.47); MONOCYTES PERCENT AUTO 6 % (4-13); Mean Corpuscular HGB 30.8 pg (26.0-34.0); Mean Corpuscular Volume 93 fL (80-100); Mean Platelet Volume 11.6 fL (9.1-12.4); NEUTROPHILS ABSOLUTE AUTO 5.31 K/mm3 (1.96-9.15); NEUTROPHILS PERCENT AUTO 70 % (41-73); Platelet Count 250 K/mm3 (150-400); RDW Coefficient Variation 12.2 % (11.7-14.2); RDW Standard Deviation 41.3 fL (35.1-46.3); Red Blood Cell Count 2.37 M/mm3 (4.30-5.90); White Blood Cell Count 7.57 K/mm3 (4.00-11.30)
[2024-01-09 06:01] LABS: Albumin, Blood 2.1 g/dL (3.4-5.0); Anion Gap 13 mmol/L (3-11); Blood Urea Nitrogen 90 mg/dL (8-24); Bun/Creatinine Ratio 12.7 (12.0-20.0); CO2, Blood 19 mmol/L (21-32); Calcium, Blood 7.8 mg/dL (8.5-10.1); Chloride, Blood 114 mmol/L (98-108); Creatinine, Blood 7.07 mg/dL (0.60-1.20); Glomerular Filtration Rate 8 (60-); Glucose, Blood 172 mg/dL (70-99); Phosphorus, Blood 7.1 mg/dL (2.5-4.9); Potassium, Blood 5.5 mmol/L (3.5-5.5); Sodium, Blood 140 mmol/L (136-145)
--- NOTE | 2024-01-09 07:11 | NUR ---
RENAL CONSULT ROUNDED ON PATIENT NEW ORDER RECEIVED FOR IR CONSULT FOR A PERMACATH PLACEMENT SO THAT PATIENT CAN BEGIN DIALYSIS. USED BLOCK SORTER PHONE TO INFORM THE PATIENT. PATIENT CONFIRMED THAT HE UNDERSTOOD. REQUEST FOR CONSULT WAS FAXED.
[2024-01-09 07:22] LABS: ANTINUCLEAR AB (ANA),HEP-2,IGG <1:80 (<1:80)
[2024-01-09] MEDS ORDERED: AmLODIPine Besylate 5 MG Tab PO SCH (08:00)
[2024-01-09] MEDS ORDERED: Sodium Bicarbonate 650 MG Tab PO SCH (09:00)
[2024-01-09] MEDS ORDERED: Sodium Zirconium Cyclosilicate 10 GM Packet PO SCH (09:00)
[2024-01-09] MEDS ORDERED: NS 500 ML IV ONE (18:31)
[2024-01-09] MEDS ORDERED: Heparin Sodium 1000 Units/ML 10ML MDV ONE (18:31)
[2024-01-09] MEDS ORDERED: NS 1,000 ML IV ONE (18:59)
[2024-01-09] MEDS ORDERED: FentaNYL Citrate 50 MCG/ML 2 ML Injection ONE (18:59)
--- NOTE | 2024-01-09 19:30 | NUR ---
SHIFT SUMMARY PATIENT WITH NO ACUTE EVENTS DURING SHIFT. HE IS PLEASANT AND COOPERATIVE WITH CARE. WESTERN TACK ASSEMBLY LINE WORKER PHONE USED THROUGHOUT SHIFT BY PRISON OFFICER AND PATIENT DENIES ANY ISSUES. PATIENT LEFT UNIT AT 1845 FOR SURGERY TO HAVE PERMACATH PLACED BY DR FISHMAN.
[2024-01-09] MEDS ORDERED: HydrALAZINE HCl 20 MG / ML 1ML Vial ONE (19:40)
[2024-01-09] MEDS ORDERED: Melatonin 3 MG Tab PO PRN (20:00)
[2024-01-09] MEDS ORDERED: TraMADol HCl 50 MG Tab PO PRN (21:50)
[2024-01-10] VITALS (13 sets, daily range): BP systolic 153–197; BP diastolic 71–92
--- NOTE | 2024-01-10 04:33 | NUR ---
SHIFT SUMMARY KISHOR WAS OFF UNIT HAVING A PERMACATH PLACED TO R CHEST AT START OF SHIFT. HE RETURNED TO THE UNIT AT 1999, PER REPORT PROCEEDURE WENT WELL WITH NO ISSUES. HE COMPLAINED OF PAIN TO PERMACATH SITE, WHICH WAS ALLEVIATED BY TYLENOL. PT WAS ALERT AND FULLY ORIENTED. PT HAD NO OTHER COMPLAINTS TONIGHT, AND RESTED COMFORTABLY IN BED AT A LOW POSITION WITH CALL LIGHT IN REACH WHICH HE USES APPROPRIATELY. PT IS INDEPENDENT IN ROOM TO BATHROOM. PERMACATH SITE IS FREE OF DRAINAGE/ DISCHARGE.
[2024-01-10 06:25] LABS: GBM, IGG MULTIPLEX BEAD ASSAY 0 AU/mL (0-19); MYELOPEROXIDASE (MPO) AB,IGG 0 AU/mL (0-19); SERINE PROTEINASE 3 PR3 AB,IGG 0 AU/mL (0-19)
[2024-01-10] MEDS ORDERED: Anticoagulant Sod Citrate Soln 3 ML SYR INJ PRN (07:10)
[2024-01-10 07:14] LABS: Albumin, Blood 2.1 g/dL (3.4-5.0); Anion Gap 13 mmol/L (3-11); Blood Urea Nitrogen 95 mg/dL (8-24); Bun/Creatinine Ratio 13.4 (12.0-20.0); CO2, Blood 19 mmol/L (21-32); Calcium, Blood 7.9 mg/dL (8.5-10.1); Chloride, Blood 113 mmol/L (98-108); Creatinine, Blood 7.08 mg/dL (0.60-1.20); Glomerular Filtration Rate 8 (60-); Glucose, Blood 200 mg/dL (70-99); Magnesium, Blood 2.1 mg/dL (1.6-2.4); Phosphorus, Blood 7.4 mg/dL (2.5-4.9); Potassium, Blood 4.9 mmol/L (3.5-5.5); Sodium, Blood 140 mmol/L (136-145)
[2024-01-10] MEDS ORDERED: Calcium Acetate 667 MG Gel Cap PO SCH (08:30)
[2024-01-10] MEDS ORDERED: Vitamin B Cmplx/Vit C/Folic Ac 1 Tab PO SCH (09:00)
[2024-01-10] MEDS ORDERED: Losartan Potassium 50 MG Tab PO SCH (09:00)
[2024-01-10 09:29] LABS: ANTINUCLEAR AB (ANA),HEP-2,IGG <1:80 (<1:80)
--- NOTE | 2024-01-10 11:04 | NUR ---
PATIENT OFF UNIT AT 0850 HEADED TO DYALISIS UNIT.
--- NOTE | 2024-01-10 16:07 | NUR ---
SHIFT SUMMARY PATIENT WITH NO ACUTE EVENTS DURING SHIFT. HE IS AOX4, CROATIAN SPEAKING ONLY, BOTTOM PRESSER USED NURSE OBGYN PHONE THROUGHOUT SHIFT TO COMMUNICATE WITH PATIENT. HE DENIES ANY ISSUES TODAY, DENIES PAIN OR DISCOMFORT. BOTTOM PRESSER EDUCATED PATIENT ON HIS ABILITY TO WALK THE HALLWAY ON THIS FLOOR IF HE IS NOT DIZZY OR LIGHTHEADED. HE IS UP WALKING THIS AFTERNOON IN HALLWAY AD GEORGE, NO DEVICES. BED IN LOW POSITION, CALL LIGHT IN REACH. PATIENT ABLE TO MAKE NEEDS KNOWN.
[2024-01-11] VITALS (14 sets, daily range): BP systolic 120–169; BP diastolic 60–71
[2024-01-11 04:56] LABS: BASOPHILS PERCENT AUTO 0 % (0-2); EOSINOPHILS ABSOLUTE AUTO 0.24 K/mm3 (0.00-0.68); EOSINOPHILS PERCENT AUTO 4 % (0-6); Hematocrit 21.3 % (37.0-53.0); Hemoglobin 7.2 g/dL (13.5-17.5); IMMATURE GRAN ABSOLUTE AUTO 0.02 K/mm3 (0.00-0.10); IMMATURE GRAN PERCENT AUTO 0 % (0-1); LYMPHOCYTES ABSOLUTE AUTO 1.46 K/mm3 (0.84-5.20); LYMPHOCYTES PERCENT AUTO 21 % (21-46); MONOCYTES ABSOLUTE AUTO 0.62 K/mm3 (0.16-1.47); MONOCYTES PERCENT AUTO 9 % (4-13); Mean Corpuscular HGB 30.8 pg (26.0-34.0); Mean Corpuscular HGB Conc 33.8 g/dL (31.5-36.5); Mean Corpuscular Volume 91 fL (80-100); Mean Platelet Volume 11.9 fL (9.1-12.4); NEUTROPHILS ABSOLUTE AUTO 4.57 K/mm3 (1.96-9.15); NEUTROPHILS PERCENT AUTO 66 % (41-73); Platelet Count 269 K/mm3 (150-400); RDW Coefficient Variation 12.1 % (11.7-14.2); Red Blood Cell Count 2.34 M/mm3 (4.30-5.90); White Blood Cell Count 6.91 K/mm3 (4.00-11.30)
[2024-01-11 05:24] LABS: Albumin, Blood 2.1 g/dL (3.4-5.0); Albumin/Globulin Ratio 0.7 (0.8-1.8); Bilirubin, Total 0.2 mg/dL (0.1-1.0); Bun/Creatinine Ratio 11.8 (12.0-20.0); Calcium, Blood 7.9 mg/dL (8.5-10.1); Creatinine, Blood 5.43 mg/dL (0.60-1.20); Globulin, Blood 3.1 g/dL (2.2-4.0); Phosphorus, Blood 6.2 mg/dL (2.5-4.9); Potassium, Blood 4.2 mmol/L (3.5-5.5); Total Protein, Blood 5.2 g/dL (6.4-8.2)
--- NOTE | 2024-01-11 05:39 | NUR ---
SHIFT SUMMARY KISHOR WAS ALERT AND FULLY ORIENTED ON ASSESSMENT. HE CLAIMS THAT HE IS FEELING BETTER THAN PREVIOUS SHIFT, HOWEVER HE DOES ADMIT TO HAVING SOME INTERMITTENT SOB THAT HE ASSOCIATES WITH DRY MOUTH AND NASAL CONGESTION, SPOT CHECK SPO2 WAS FLUCTUATING FROM 90-96 PT WAS GIVEN 1L O2 VIA NC AND ADVISED ONLY TO USE IT WHEN NEEDED, HE ALSO CLAIMS TO HAVE A SWEET TASTE IN HIS MOUTH, SPOT CHECK CBG WAS 130'S. BP'S REMAIN HIGH, RESPONDED WELL TO PRN IV HYDRALAZINE. NO OTHER COMPLAINTS TONIGHT. PT RESTING IN BED AT LOW POSITION WITH CALL LIGHT IN REACH WHICH HE SEEMS HESITANT TO USE.
[2024-01-11 14:45] LABS: GBM, IGG MULTIPLEX BEAD ASSAY 0 AU/mL (0-19); MYELOPEROXIDASE (MPO) AB,IGG 1 AU/mL (0-19); SERINE PROTEINASE 3 PR3 AB,IGG 0 AU/mL (0-19)
[2024-01-11] MEDS ORDERED: Darbepoetin Alfa in Polysorbat 25 MCG/0.42 ML Syringe SC SCH (16:00)
--- NOTE | 2024-01-11 18:41 | NUR ---
SHIFT SUMMARY PATIENT ALERT AND INTERACTIVE. INTERPRATER PHONE USED FOR ASSESSMENT. PATIENT DOWN TO DIALYSIS AT START OF SHIFT. PATIENT AMBULATING IN HALLS AFTER DIALYSIS. PATIENT DENIES ANY PAIN OR DISCOMFORT TODAY BUT EAGER TO GET HOME. PATIENT INDEPENDENT IN SHOWER.
[2024-01-12] VITALS (14 sets, daily range): BP systolic 134–194; BP diastolic 66–89
[2024-01-12 05:18] LABS: Hematocrit 19.4 % (37.0-53.0); Hemoglobin 6.6 g/dL (13.5-17.5)
[2024-01-12 05:46] LABS: Albumin, Blood 2.1 g/dL (3.4-5.0); Anion Gap 9 mmol/L (3-11); Blood Urea Nitrogen 47 mg/dL (8-24); Bun/Creatinine Ratio 10.7 (12.0-20.0); CHOL/HDL RATIO 2.2; CO2, Blood 30 mmol/L (21-32); Calcium, Blood 7.9 mg/dL (8.5-10.1); Chloride, Blood 103 mmol/L (98-108); Cholesterol 140 mg/dL (50-200); Creatinine, Blood 4.41 mg/dL (0.60-1.20); Glomerular Filtration Rate 15 (60-); Glucose, Blood 126 mg/dL (70-99); HDL Cholesterol 65 mg/dL (>39); Low Density Lipoprotein Chol 63 mg/dL (0-110); Magnesium, Blood 1.9 mg/dL (1.6-2.4); Phosphorus, Blood 5.4 mg/dL (2.5-4.9); Potassium, Blood 3.9 mmol/L (3.5-5.5); Sodium, Blood 138 mmol/L (136-145); Triglycerides 58 mg/dL (30-160); Very Low Density Lipoprot Chol 11 mg/dL (6-32)
--- NOTE | 2024-01-12 06:16 | NUR ---
SHIFT SUMMARY KISHOR WAS ALERT AND FULLY ORIENTED AT START OF SHIFT. WAS VISITED BY FAMILY. PT CONTINUES TO REPORT IMPROVEMENT, HOWEVER HE DOES DESCRIBE BLOATING IN HIS ABD, ESPECIALLY AROUND MEAL TIMES SAYING THAT IT "FEELS LIKE A BALL, AND IT FEELS LIKE HIS FOOD IS JUST SITTING IN HIS STOMACHE." BOWEL CARE PROTOCOL ORDERED PT HAS NOT HAD A MOVEMENT IN 3-4 DAYS. AM LABS REVEAL HGB OF 6.6 AT THE TIME OF WRITING THIS NOTE. WILL FOLLOW UP WITH HOSPITALIST, OR PASS TO DAYSHIFT. PT RESTING IN BED AT LOW POSITION WITH CALL LIGHT IN REACH.
--- NOTE | 2024-01-12 07:38 | NUR ---
0735- THIS RN INFORMED DR. ROBLES OF PT'S CRITICAL HGB=6.6. MD ROBLES ORDERED 1 UNIT OF PRBCS TO BE GIVEN IN DIALYSIS.
[2024-01-12] MEDS ORDERED: Polyethylene Glycol 3350 17 gm PO SCH (09:00)
[2024-01-12] MEDS ORDERED: Docusate Sodium 100 MG Cap PO SCH (09:00)
[2024-01-12] MEDS ORDERED: Sennosides 8.6 MG Tab PO SCH (09:00)
[2024-01-12 09:15] LABS: HEPATITIS B SURFACE ANTIBODY <3.10 IU/L; HEPATITIS B SURFACE ANTIGEN Negative (Negative); HEPATITIS BE ANTIBODY Negative (Negative); HEPATITIS BE ANTIGEN Negative (Negative)
[2024-01-12 11:00] LABS: HEPATITIS A ANTIBODY, IGM Negative (Negative); HEPATITIS B CORE ANTIBODY, IGM Negative (Negative); HEPATITIS B SURFACE ANTIGEN Negative (Negative); HEPATITIS C AB CIA INTERP Negative (Negative); HEPATITIS C ANTIBODY CIA INDEX 0.09 IV
--- NOTE | 2024-01-12 18:00 | NUR ---
SUMMARY- AAOX4. INDEPENDENT IN ROOM. NO COMPLAINTS THIS SHIFT. PT HAS GOOD APPETITE.
[2024-01-12 18:04] LABS: HBV QNT BY NAAT (IU/ML) Not Detected; HBV QNT BY NAAT (LOG IU/ML) Not Detected; HBV QNT BY NAAT INTERP Not Detected (Not Detected)
[2024-01-13] VITALS (15 sets, daily range): BP systolic 138–183; BP diastolic 55–86
[2024-01-13 01:55] LABS: ALBUMIN %,URINE 49.8 %; ALPHA-2 %,URINE 11.4 %; BETA GLOBULIN %,URINE 16.4 %; GAMMA GLOBULIN %,URINE 12.4 %; HOURS COLLECTED 24 hr; TOTAL VOLUME 1400 mL
[2024-01-13 05:33] LABS: Hematocrit 24.6 % (37.0-53.0); Hemoglobin 8.2 g/dL (13.5-17.5)
[2024-01-13 06:04] LABS: Albumin, Blood 2.2 g/dL (3.4-5.0); Anion Gap 9 mmol/L (3-11); Blood Urea Nitrogen 44 mg/dL (8-24); Bun/Creatinine Ratio 10.6 (12.0-20.0); CO2, Blood 30 mmol/L (21-32); Chloride, Blood 102 mmol/L (98-108); Creatinine, Blood 4.17 mg/dL (0.60-1.20); Glomerular Filtration Rate 16 (60-); Glucose, Blood 112 mg/dL (70-99); Magnesium, Blood 1.9 mg/dL (1.6-2.4); Phosphorus, Blood 4.1 mg/dL (2.5-4.9); Potassium, Blood 4.2 mmol/L (3.5-5.5); Sodium, Blood 137 mmol/L (136-145)
--- NOTE | 2024-01-13 07:32 | NUR ---
PATIENT SLEPT IN LONG INTERVALS. DID NOT REQUIRE PRN BP MEDS. CBG 266. RIGHT PERMACATH DRESSING CD&I
[2024-01-13] MEDS ORDERED: Anticoagulant Sod Citrate Soln 3 ML SYR INJ PRN (07:45)
[2024-01-13 13:08] LABS: FERRITIN 125 ng/mL (30-400)
[2024-01-13 15:08] LABS: IRON BIND.CAP.(TIBC) 202 ug/dL (250-450); IRON SATURATION 26 % (15-55); IRON, SERUM 52 ug/dL (38-169); UIBC 150 ug/dL (111-343)
[2024-01-13 15:34] LABS: HEPATITIS A ANTIBODY, IGM Negative (Negative); HEPATITIS B CORE ANTIBODY, IGM Negative (Negative); HEPATITIS B SURFACE ANTIGEN Negative (Negative); HEPATITIS C AB CIA INTERP Negative (Negative); HEPATITIS C ANTIBODY CIA INDEX 0.05 IV
--- NOTE | 2024-01-13 15:49 | NUR ---
SUMMARY- AAOX4. INDEPENDENT IN ROOM. NO ACUTE EVENTS THIS SHIFT AND NO CHANGES WITH PT. PT DENIES PAIN THIS SHIFT.
[2024-01-13 15:50] LABS: HIV 1,2 COMBO ANTIGEN/ANTIBODY Negative (Negative)
[2024-01-14 05:58] LABS: Hemoglobin 8.3 g/dL (13.5-17.5)
[2024-01-14 06:07] VITALS: BP 171/67
--- NOTE | 2024-01-14 06:19 | NUR ---
SHIFT SUMMARY PT CONT TO BE HYPERTENSIVE, BUT ASYMPTOMATIC AND MEDICATED PER EMAR. NO OTHER ACUTE CHANGES THIS SHIFT. CALL LIGHT WITHIN REACH AND PT ABLE TO MAKE NEEDS KNOWN.
[2024-01-14 06:25] LABS: Albumin, Blood 2.2 g/dL (3.4-5.0); Anion Gap 8 mmol/L (3-11); Blood Urea Nitrogen 41 mg/dL (8-24); Bun/Creatinine Ratio 9.1 (12.0-20.0); CO2, Blood 32 mmol/L (21-32); Calcium, Blood 8.4 mg/dL (8.5-10.1); Chloride, Blood 102 mmol/L (98-108); Glomerular Filtration Rate 15 (60-); Glucose, Blood 154 mg/dL (70-99); Phosphorus, Blood 4.5 mg/dL (2.5-4.9); Potassium, Blood 4.7 mmol/L (3.5-5.5); Sodium, Blood 137 mmol/L (136-145)
[2024-01-14 07:57] VITALS: BP 161/68
[2024-01-14 14:30] VITALS: BP 197/78
[2024-01-14] MEDS ORDERED: B-COMPLEX WITH1 EACH PO (14:52)
[2024-01-14] MEDS ORDERED: ATOR40TA PO (14:52)
[2024-01-14] MEDS ORDERED: Calcium Acetat667 MG PO (14:53)
[2024-01-14] MEDS ORDERED: LOSA50 PO (14:54)
[2024-01-14] MEDS ORDERED: CATAPRES0.1 MG PO (14:54)
[2024-01-14] MEDS ORDERED: MELA3 PO (14:54)
[2024-01-14] MEDS ORDERED: MIRALAX17 GM PO (14:55)
--- NOTE | 2024-01-14 17:00 | NUR ---
DISCHARGE INSTRUCTIONS COMPLETED AND DISCUSSED WITH PT THROUGH CONTINUOUS DRYOUT OPERATOR PHONE. ANNA MARIE THOMAS ALSO CAME AND CLARIFIED/REINFORCED MEDS AND TIMES TO ARRIVE AT [facility] FOR DIALYSIS. TO [facility] VIA W/C.
[2024-02-07] MEDS ORDERED: ONDA4 (07:03)
[2024-02-07] MEDS ORDERED: ONDA4ODT MM (12:41)
[2024-02-11] MEDS ORDERED: Vitamin B Comple1 EA PO (20:47)
[2024-02-11] MEDS ORDERED: Calcium Acetat667 MG PO (20:48)
[2024-02-18] MEDS ORDERED: GLIP2.5ER PO (23:45)
[2024-02-18] MEDS ORDERED: Phenergan25 M1 PO (23:46)
[2024-02-19] MEDS ORDERED: PIOG15 PO (10:31)
[2024-02-19] MEDS ORDERED: ONDA4 SL (10:32)
[2024-02-19] MEDS ORDERED: METF500 PO (11:53)
[2024-02-21] MEDS ORDERED: ASPI81CH PO (15:07)
[2024-02-21] MEDS ORDERED: JARDIANCE10 MG PO (15:09)
[2024-02-21] MEDS ORDERED: CLOP75 PO (15:09)
[2024-02-21] MEDS ORDERED: HYDR10 PO (15:09)
[2024-02-21] MEDS ORDERED: VISBIOME 112.51 EACH PO (15:10)
== END 2024-01-14 16:40 | disposition home or self-care (01) | DRG 673 ==
LOC: ER 14:05 → MEDS 14:41
PROVIDERS: Internal Medicine Nephrology; Student in an Organized Health Care Education/Training Program; ADMIT Internal Medicine
PROC: 0JH63XZ Insertion of Tunneled Vascular Access Device into Chest Subcutaneous Tissue and Fascia, Percutaneous Approach (ICD-10-PCS; 2024-01-09)
PROC: 02HV33Z Insertion of Infusion Device into Superior Vena Cava, Percutaneous Approach (ICD-10-PCS; 2024-01-09)
PROC: 5A1D70Z Performance of Urinary Filtration, Intermittent, Less than 6 Hours Per Day (ICD-10-PCS; principal; 2024-01-10)
PROC: 30233N1 Transfusion of Nonautologous Red Blood Cells into Peripheral Vein, Percutaneous Approach (ICD-10-PCS; 2024-01-12)
DX: N17.9 Acute kidney failure, unspecified (principal); I50.33 Acute on chronic diastolic (congestive) heart failure; I13.0 Hypertensive heart and chronic kidney disease with heart failure and stage 1 through stage 4 chronic kidney disease, or unspecified chronic kidney disease; E87.20 Acidosis, unspecified; I16.1 Hypertensive emergency; N18.6 End stage renal disease; E87.5 Hyperkalemia; E11.22 Type 2 diabetes mellitus with diabetic chronic kidney disease; E11.65 Type 2 diabetes mellitus with hyperglycemia; D63.1 Anemia in chronic kidney disease; K52.9 Noninfective gastroenteritis and colitis, unspecified; E78.5 Hyperlipidemia, unspecified; E88.09 Other disorders of plasma-protein metabolism, not elsewhere classified; E11.649 Type 2 diabetes mellitus with hypoglycemia without coma; E86.9 Volume depletion, unspecified; Z79.84 Long term (current) use of oral hypoglycemic drugs; Z79.4 Long term (current) use of insulin; Z89.412 Acquired absence of left great toe; Z99.2 Dependence on renal dialysis; R10.9 Unspecified abdominal pain; R91.8 Other nonspecific abnormal finding of lung field; K63.89 Other specified diseases of intestine; R42 Dizziness and giddiness
CPT/HCPCS: 36415; 36430; 36561; 71046; 74022; 76770; 76937; 80053; 80061; 80069; 80074; 81001; 82533; 82550; 82728; 82947; 83036; 83516; 83540; 83550; 83690; 83735; 83880; 84100; 84156; 84166; 84443; 84550; 85014; 85018; 85025; 86039; 86334; 86335; 86850; 86900; 86901; 86923; 87389; 87517; 93005; 93010; 93306; 96374; 96375; 99152; 99153; 99284-25; A9270; C1750; C1769; J0360; J0881; J1644; J1815; J1940; J3010; J7030; J7040; J7042; J7060; P9016

== ENCOUNTER → 2024-01-05 | Outpatient (CLI) | payer OTHER ==
[~2024-01-05] MED LIST changes: +ATOR40TA PO; +B-COMPLEX WITH1 EACH PO; +CATAPRES0.1 MG PO; +Calcium Acetat667 MG PO; +LOSA50 PO; +MELA3 PO; +MIRALAX17 GM PO
[2024-01-05 12:37] LABS: Hematocrit 29.1 % (37.0-53.0); Hemoglobin 9.5 g/dL (13.5-17.5); Mean Corpuscular HGB 30.7 pg (26.0-34.0); Mean Corpuscular HGB Conc 32.6 g/dL (31.5-36.5); Mean Corpuscular Volume 94 fL (80-100); Mean Platelet Volume 12.4 fL (9.1-12.4); Platelet Count 300 K/mm3 (150-400); RDW Coefficient Variation 12.6 % (11.7-14.2); RDW Standard Deviation 43.4 fL (35.1-46.3); Red Blood Cell Count 3.09 M/mm3 (4.30-5.90)
[2024-01-05 12:41] LABS: Albumin, Blood 2.8 g/dL (3.4-5.0); Albumin/Globulin Ratio 0.6 (0.8-1.8); Bilirubin, Total 0.3 mg/dL (0.1-1.0); Calcium, Blood 8.5 mg/dL (8.5-10.1); Creatinine, Blood 6.81 mg/dL (0.60-1.20); Globulin, Blood 4.4 g/dL (2.2-4.0); Potassium, Blood 5.7 mmol/L (3.5-5.5); Total Protein, Blood 7.2 g/dL (6.4-8.2)
[2024-01-05 12:44] LABS: BASOPHILS ABSOLUTE AUTO 0.03 K/mm3 (0.00-0.23); BASOPHILS PERCENT AUTO 0 % (0-2); EOSINOPHILS PERCENT AUTO 2 % (0-6); IMMATURE GRAN ABSOLUTE AUTO 0.06 K/mm3 (0.00-0.10); IMMATURE GRAN PERCENT AUTO 1 % (0-1); LYMPHOCYTES ABSOLUTE AUTO 1.07 K/mm3 (0.84-5.20); LYMPHOCYTES PERCENT AUTO 9 % (21-46); MONOCYTES ABSOLUTE AUTO 0.91 K/mm3 (0.16-1.47); MONOCYTES PERCENT AUTO 7 % (4-13); NEUTROPHILS ABSOLUTE AUTO 10.28 K/mm3 (1.96-9.15); NEUTROPHILS PERCENT AUTO 82 % (41-73); White Blood Cell Count 12.55 K/mm3 (4.00-11.30)
== END | disposition home or self-care (01) ==
LOC: LAB SHORT 12:25
PROVIDERS: Physician Assistant Medical
DX: R10.9 Unspecified abdominal pain (principal); R42 Dizziness and giddiness
CPT/HCPCS: 80053; 83880; 85025

== ENCOUNTER 2024-01-27 17:28 | Inpatient (IN) | payer OTHER ==
[~2024-01-27] VITALS: Ht 152.4 cm; Wt 50.4 kg
[~2024-01-27 17:28] MED LIST changes: +ATOR40TA PO; +B-COMPLEX WITH1 EACH PO; +CATAPRES0.1 MG PO; +Calcium Acetat667 MG PO; +LOSA50 PO; +MELA3 PO; +MIRALAX17 GM PO
[2024-01-27] MEDS ORDERED: Ondansetron HCl 2 MG / ML 2ML Vial IV ONE (18:05)
[2024-01-27 18:13] LABS: BASOPHILS ABSOLUTE AUTO 0.02 K/mm3 (0.00-0.23); BASOPHILS PERCENT AUTO 0 % (0-2); EOSINOPHILS PERCENT AUTO 0 % (0-6); Hematocrit 38.2 % (37.0-53.0); Hemoglobin 13.1 g/dL (13.5-17.5); IMMATURE GRAN ABSOLUTE AUTO 0.04 K/mm3 (0.00-0.10); IMMATURE GRAN PERCENT AUTO 0 % (0-1); LYMPHOCYTES ABSOLUTE AUTO 0.56 K/mm3 (0.84-5.20); LYMPHOCYTES PERCENT AUTO 4 % (21-46); MONOCYTES PERCENT AUTO 3 % (4-13); Mean Corpuscular HGB 31.4 pg (26.0-34.0); Mean Corpuscular HGB Conc 34.3 g/dL (31.5-36.5); Mean Corpuscular Volume 92 fL (80-100); Mean Platelet Volume 10.3 fL (9.1-12.4); NEUTROPHILS ABSOLUTE AUTO 12.28 K/mm3 (1.96-9.15); NEUTROPHILS PERCENT AUTO 92 % (41-73); Platelet Count 420 K/mm3 (150-400); RDW Coefficient Variation 13.4 % (11.7-14.2); RDW Standard Deviation 43.3 fL (35.1-46.3); Red Blood Cell Count 4.17 M/mm3 (4.30-5.90)
[2024-01-27 18:53] LABS: Albumin, Blood 3.1 g/dL (3.4-5.0); Albumin/Globulin Ratio 0.8 (0.8-1.8); Bilirubin, Total 0.5 mg/dL (0.1-1.0); Bun/Creatinine Ratio 7.9 (12.0-20.0); Calcium, Blood 8.2 mg/dL (8.5-10.1); Creatinine, Blood 8.72 mg/dL (0.60-1.20); Globulin, Blood 3.9 g/dL (2.2-4.0); Potassium, Blood 4.8 mmol/L (3.5-5.5)
[2024-01-27 19:41] LABS: Source, Urine Straight Cath
[2024-01-27 19:55] LABS: Bilirubin, Urine Neg (Neg); Blood, Urine 2+ (Neg); Glucose Qualitative, Urine Neg (Neg); Ketones, Urine Neg (Neg); Leukocyte Esterase, Urine Neg (Neg); Nitrite, Urine Neg (Neg); Protein, Urine 4+ (Neg); Specific Gravity, Urine 1.015 (1.003-1.022); Urobilinogen, Urine NORM (Normal)
[2024-01-27 20:08] LABS: Appearance, Urine Clear (Clear); Color, Urine Pale Yellow (P-Yellow)
[2024-01-27 20:09] LABS: Red Blood Cells, Urine 0-2 /hpf (0-2); White Blood Cells, Urine 0-2 /hpf (0-5)
[2024-01-27 20:10] LABS: Bacteria Not Seen /hpf; Squamous Epithelial Cells Rare /hpf (Few)
[2024-01-27] MEDS ORDERED: Dextrose 50% 50 ML Syringe IV ONE (21:30)
[2024-01-27] MEDS ORDERED: Ondansetron HCl 2 MG / ML 2ML Vial IV PRN (22:10)
[2024-01-27 22:30] VITALS: BP 173/80
[2024-01-27] MEDS ORDERED: Sodium Bicarb 8.4% Inj 150 MEQ in Dextrose 5% 1,000 ML IV SCH (22:30)
[2024-01-27] MEDS ORDERED: Glucagon 1 MG/KIT VIAL IV ONE (22:30)
[2024-01-27 22:48] LABS: International Normalized Ratio 1.12; Prothrombin Time Results 11.9 Sec (9.7-11.5)
[2024-01-27] MEDS ORDERED: Heparin Sodium,Porcine 5,000 UNIT/0.5 ML SDV SC SCH (23:00)
[2024-01-27] MEDS ORDERED: Prochlorperazine Edisylate 10 mg Vial IV PRN (23:35)
[2024-01-28] VITALS (16 sets, daily range): BP systolic 109–174; BP diastolic 62–90
[2024-01-28] MEDS ORDERED: Dextrose 50% 50 ML Syringe IV ONE (01:30)
[2024-01-28] MEDS ORDERED: HydrALAZINE HCl 20 MG / ML 1ML Vial IV PRN (03:30)
[2024-01-28 03:46] LABS: BASOPHILS ABSOLUTE AUTO 0.01 K/mm3 (0.00-0.23); BASOPHILS PERCENT AUTO 0 % (0-2); EOSINOPHILS PERCENT AUTO 0 % (0-6); Hematocrit 35.8 % (37.0-53.0); Hemoglobin 12.2 g/dL (13.5-17.5); IMMATURE GRAN ABSOLUTE AUTO 0.03 K/mm3 (0.00-0.10); IMMATURE GRAN PERCENT AUTO 0 % (0-1); LYMPHOCYTES ABSOLUTE AUTO 1.14 K/mm3 (0.84-5.20); LYMPHOCYTES PERCENT AUTO 9 % (21-46); MONOCYTES ABSOLUTE AUTO 0.45 K/mm3 (0.16-1.47); MONOCYTES PERCENT AUTO 4 % (4-13); Mean Corpuscular HGB 31.2 pg (26.0-34.0); Mean Corpuscular HGB Conc 34.1 g/dL (31.5-36.5); Mean Corpuscular Volume 92 fL (80-100); Mean Platelet Volume 10.5 fL (9.1-12.4); NEUTROPHILS ABSOLUTE AUTO 10.98 K/mm3 (1.96-9.15); NEUTROPHILS PERCENT AUTO 87 % (41-73); Platelet Count 389 K/mm3 (150-400); RDW Coefficient Variation 13.6 % (11.7-14.2); RDW Standard Deviation 43.3 fL (35.1-46.3); Red Blood Cell Count 3.91 M/mm3 (4.30-5.90); White Blood Cell Count 12.61 K/mm3 (4.00-11.30)
[2024-01-28 04:20] LABS: Magnesium, Blood 1.9 mg/dL (1.6-2.4)
[2024-01-28 04:26] LABS: Albumin, Blood 2.9 g/dL (3.4-5.0); Albumin/Globulin Ratio 0.9 (0.8-1.8); Bilirubin, Total 0.5 mg/dL (0.1-1.0); Bun/Creatinine Ratio 9.1 (12.0-20.0); Calcium, Blood 8.3 mg/dL (8.5-10.1); Creatinine, Blood 8.79 mg/dL (0.60-1.20); Globulin, Blood 3.4 g/dL (2.2-4.0); Phosphorus, Blood 6.9 mg/dL (2.5-4.9); Potassium, Blood 5.2 mmol/L (3.5-5.5); Total Protein, Blood 6.3 g/dL (6.4-8.2)
--- NOTE | 2024-01-28 05:09 | NUR ---
2250 Pt arrived on unit via [facility] with RN in attendance. Transferred from [facility] to bed in room 01. Pt Hebrew speaking only. Oriented to room and unit per unit standards via employee. Assessment obtained using Carpenter Repairer line, Lead Generation Marketing Manager Holly # [id number]. Assessment kept brief due to pt actively vomiting. Too soon for antiemetic ordered, call placed to MD to request additional agent, new orders recieved. VSS and pt denies pain. Physical assessment largely beneign. Please see full assessment for additional details. WIll continue to closely monitor POC glucose as pt appears to be sympotmatic with sugard that may be WNL though too low for him to tolerate well. 2300 POC glucose is 82 despite treatment in ED. Pt appears symptomatic (diaphoretic, shaky, nauseated). Give 1mg Glucogen one time per order from the ED. 2400 POC glucose 92 0100 POC glucose 83 with pt reporting hypoglycemic symptoms. Call placed to MD, new orders recieved. Gave 1/2 amp D50. 0300 POC glucose 101. Will continue to monitor.
[2024-01-28] MEDS ORDERED: Anticoagulant Sod Citrate Soln 3 ML SYR INJ PRN (07:05)
[2024-01-28 07:31] LABS: Influenza A, PCR NEGATIVE (NEGATIVE); Influenza B, PCR NEGATIVE (NEGATIVE); Resp Syncytial Virus, PCR NEGATIVE (NEGATIVE); SARS-Cov-2 (COVID-19) PCR, MMC NEGATIVE (NEGATIVE)
[2024-01-28] MEDS ORDERED: Calcium Acetate 667 MG Gel Cap PO SCH (08:30)
[2024-01-28] MEDS ORDERED: Polyethylene Glycol 3350 17 gm PO SCH (09:00)
[2024-01-28] MEDS ORDERED: Losartan Potassium 25 MG Tab PO SCH (09:00)
[2024-01-28] MEDS ORDERED: CloNIDine 0.1 MG Tab PO SCH (09:00)
--- NOTE | 2024-01-28 09:27 | NUR ---
RN SPOKE WITHT HE PT USING THE SCHOOL BUS MECHANIC PHONE AT 0925. THE PATIENT C/O CHILLS. RN EXPLAINED THAT DR. RITTER WILL CHECK THE GALLBLADDER US RESULTS AND ANTICIPATES STARTING AN ANTIBIOTIC. RN DISCUSSED GIVING THE PATIENT HIS MORNING MEDICATIONS AND THEN HE WILL GO TO DIALYSIS. THE PATIENT HAS LEFT FOR DIALYSIS AT THIS TIME.
[2024-01-28] MEDS ORDERED: Piperacillin/Tazobactam Sod 2.25 GM in NS 50 ML IV SCH (10:20)
[2024-01-28] MEDS ORDERED: NS 250 ML IV PRN (13:05)
--- NOTE | 2024-01-28 15:23 | NUR ---
HIDA SCAN WAS CANCELLED FOR TODAY BECAUSE THE RN GAVE THE PATIENT A MEDICATION THAT WAS DUE AND A SIP OF WATER. PLAN IS FOR HIDA SCAN 01/29/24 AT 0730. PATIENT NEEDS TO BE NPO AT MIDNIGHT, NO MEDICATIONS, NO WATER AND NO NARCOTICS.
--- NOTE | 2024-01-28 18:04 | NUR ---
PATIENT IS ALERT AND ORIENTED AND COOPERATIVE WITH CARE. PATIENT IS SWAZI SPEAKING ONLY. HE CAN NOT READ. STAFF COMMUNICATE WITH THE PATIENT USING THE INTREPRETER PHONE. HE WAS DIALYZED TODAY. NO C/O NAUSEA OR VOMITTING TODAY. US REVEALED CHOLYLITHIASIS, DR. MARIE CONSULTED. HIDA SCAN ORDERED AND DELAYED UNTIL TOMORROW AT 0730. PATIENT IS TO BE NPO AT 0000, NO WATER, NO NARCOTICS AND NO MEDICATIONS. C/O 2/10 ABOMINAL PAIN. ABX STARTED TODAY. THE PATIENT'S FRIENDS OF 14 YEARS WERE AT THE BEDSIDE TODAY AND ASKED TO BE UPDATED BY PHONE. LATEST BG 189. PATIENT TOLERATING HIS RENAL DIET. WILL CONTINUE TO MONITOR
[2024-01-28] MEDS ORDERED: Melatonin 3 MG Tab PO SCH (21:00)
[2024-01-29] VITALS (17 sets, daily range): BP systolic 112–171; BP diastolic 59–98
[2024-01-29 04:42] LABS: BASOPHILS ABSOLUTE AUTO 0.03 K/mm3 (0.00-0.23); BASOPHILS PERCENT AUTO 0 % (0-2); EOSINOPHILS ABSOLUTE AUTO 0.05 K/mm3 (0.00-0.68); EOSINOPHILS PERCENT AUTO 1 % (0-6); Hematocrit 31.2 % (37.0-53.0); Hemoglobin 10.4 g/dL (13.5-17.5); IMMATURE GRAN ABSOLUTE AUTO 0.03 K/mm3 (0.00-0.10); IMMATURE GRAN PERCENT AUTO 0 % (0-1); LYMPHOCYTES PERCENT AUTO 16 % (21-46); MONOCYTES PERCENT AUTO 8 % (4-13); Mean Corpuscular HGB 30.6 pg (26.0-34.0); Mean Corpuscular HGB Conc 33.3 g/dL (31.5-36.5); Mean Corpuscular Volume 92 fL (80-100); Mean Platelet Volume 10.7 fL (9.1-12.4); NEUTROPHILS ABSOLUTE AUTO 7.32 K/mm3 (1.96-9.15); NEUTROPHILS PERCENT AUTO 75 % (41-73); Platelet Count 342 K/mm3 (150-400); RDW Coefficient Variation 13.5 % (11.7-14.2); RDW Standard Deviation 43.9 fL (35.1-46.3); White Blood Cell Count 9.83 K/mm3 (4.00-11.30)
[2024-01-29 05:12] LABS: Albumin, Blood 2.6 g/dL (3.4-5.0); Anion Gap 13 mmol/L (3-11); Blood Urea Nitrogen 72 mg/dL (8-24); CO2, Blood 28 mmol/L (21-32); Calcium, Blood 7.9 mg/dL (8.5-10.1); Chloride, Blood 94 mmol/L (98-108); Creatinine, Blood 7.97 mg/dL (0.60-1.20); Glomerular Filtration Rate 7 (60-); Glucose, Blood 175 mg/dL (70-99); Magnesium, Blood 2.2 mg/dL (1.6-2.4); Phosphorus, Blood 5.6 mg/dL (2.5-4.9); Potassium, Blood 4.4 mmol/L (3.5-5.5); Sodium, Blood 131 mmol/L (136-145)
--- NOTE | 2024-01-29 06:10 | NUR ---
1915 Assumed care of patient, bedside shift report completed. Shift plan of care reviewed with pt, all questions answered. Pt slept well this shift, denying signficant pain. Endorses "small" amount of Right sided abdominal pain, though reports does not prevent him from sleeping. Has been NPO since 0001 for HIDA scan this AM. Pt reports continues to be weaker than his baseline, though endorses markedly improved from admit yesterday. Pt reports understanding that medical/surgical plan of care dependant upon results of scan. Certified Radiographer Mammographer via phone used for brief portions of assessment requiring explanation and nursing education. All questions answered and pt endorses confidence in nursing shift plan of care.
[2024-01-29] MEDS ORDERED: Anticoagulant Sod Citrate Soln 3 ML SYR INJ PRN (06:40)
--- NOTE | 2024-01-29 08:47 | NUR ---
Bedside report at 0715. The pt was awake, alert, and answering questions to belarusian speaking sanitation technician at the bedside. He is Citizen Of [place] speaking per report. He was taken for HIDA scan at approx the same time. 0815 approx time pt returned to the room. Dr. Fields rounded in his room, and then the pt was taken to dialysis, where he is at this time. AM meds held due to possibility of hypotension disrupting the dialysis. Will administer antihypertensive meds and other meds later. Zosyn to be given after dialysis
--- NOTE | 2024-01-29 13:35 | NUR ---
pt appears to be sleeping, respirations are even and unlabored. He ate some food after dialysis, but then had one small emesis of food. Given zofran and he continued to eat clear liquids, which he tolerated well. Radha Pena high school social studies tutor came to visit him and also spoke with Paulo Oliva, our hospice case manager.
[2024-01-29] MEDS ORDERED: Acetaminophen 325 MG TABLET PO PRN (14:55)
--- NOTE | 2024-01-29 15:25 | NUR ---
Tylenol given for pt 'feeling feverish " without any actual documented fever. Telephone report given to Rubia, pt is transferring to 301.
--- NOTE | 2024-01-29 17:44 | NUR ---
SHIFT SUMMARY ROSSY WAS TRANSFERED FROM PCU TO MEDICAL FLOOR AT 1540HRS. HE C/O FEELING VERY WEAK. LETTER OF CREDIT CLERK PHONE USED FOR COMMUNICATION #[id number]. HE DENIES NAUSEA CURRENTLY BUT SAID HE HAS NOT BEEN ABLE TO KEEP MUCH DOWN. SKIN CHECK DONE WITH MYSELF AND MARGA BURDICK RN. STERI STRIPS AT DIALYSIS NECK INSERTION SITE, SKIN LOOKS IN GOOD CONDITION OTHERWISE. NO CONFUSION EVIDENT. NO CALLS FROM DIRECT SUPPORT STAFF. BED LOW, CALL LIGHT IN REACH.
[2024-01-30] VITALS (15 sets, daily range): BP systolic 114–154; BP diastolic 55–75
--- NOTE | 2024-01-30 04:16 | NUR ---
SHIFT SUMMARY PATIENT IS AOX3. PATIENT ADMITTED WITH HYPOGLYCEMIA. PATIENT HAD FRIENDS IN AT BEGINNING OF SHIFT TO VISIT. PATIENT HAS BEEN NPO SINCE MIDNIGHT R/T POTENTIAL FOR PROCEDURE. PATIENT DENIES PAIN OR CHEST PAIN. PATIENT SLEPT T/O NIGHT WITH RESPIRATIONS EQUAL AND UNLABORED. BED IS LOCKED IN THE LOWEST POSITION WITH CALL LIGHT IN REACH. NO S/S OF DISTRESS NOTED AT THIS TIME. CARE IS ONGOING.
[2024-01-30 05:21] LABS: BASOPHILS ABSOLUTE AUTO 0.02 K/mm3 (0.00-0.23); BASOPHILS PERCENT AUTO 0 % (0-2); EOSINOPHILS ABSOLUTE AUTO 0.07 K/mm3 (0.00-0.68); EOSINOPHILS PERCENT AUTO 1 % (0-6); Hematocrit 31.2 % (37.0-53.0); Hemoglobin 10.3 g/dL (13.5-17.5); IMMATURE GRAN ABSOLUTE AUTO 0.04 K/mm3 (0.00-0.10); IMMATURE GRAN PERCENT AUTO 0 % (0-1); LYMPHOCYTES ABSOLUTE AUTO 1.59 K/mm3 (0.84-5.20); LYMPHOCYTES PERCENT AUTO 16 % (21-46); MONOCYTES ABSOLUTE AUTO 0.72 K/mm3 (0.16-1.47); MONOCYTES PERCENT AUTO 7 % (4-13); Mean Corpuscular HGB 30.8 pg (26.0-34.0); Mean Corpuscular Volume 93 fL (80-100); Mean Platelet Volume 10.9 fL (9.1-12.4); NEUTROPHILS ABSOLUTE AUTO 7.42 K/mm3 (1.96-9.15); NEUTROPHILS PERCENT AUTO 75 % (41-73); Platelet Count 301 K/mm3 (150-400); RDW Coefficient Variation 13.2 % (11.7-14.2); RDW Standard Deviation 44.4 fL (35.1-46.3); Red Blood Cell Count 3.34 M/mm3 (4.30-5.90); White Blood Cell Count 9.86 K/mm3 (4.00-11.30)
[2024-01-30 05:49] LABS: Magnesium, Blood 2.2 mg/dL (1.6-2.4)
[2024-01-30 05:50] LABS: Albumin, Blood 2.6 g/dL (3.4-5.0); Anion Gap 12 mmol/L (3-11); Blood Urea Nitrogen 47 mg/dL (8-24); Bun/Creatinine Ratio 7.2 (12.0-20.0); CO2, Blood 29 mmol/L (21-32); Calcium, Blood 7.8 mg/dL (8.5-10.1); Chloride, Blood 95 mmol/L (98-108); Creatinine, Blood 6.55 mg/dL (0.60-1.20); Glomerular Filtration Rate 9 (60-); Glucose, Blood 148 mg/dL (70-99); Phosphorus, Blood 4.7 mg/dL (2.5-4.9); Sodium, Blood 132 mmol/L (136-145)
[2024-01-30] MEDS ORDERED: Anticoagulant Sod Citrate Soln 3 ML SYR INJ PRN (08:00)
[2024-01-30] MEDS ORDERED: Darbepoetin Alfa in Polysorbat 25 MCG/0.42 ML Syringe SC SCH (16:00)
[2024-01-30] MEDS ORDERED: Insulin Human Lispro 100 Units/ML 3ML Syringe SC SCH (18:00)
--- NOTE | 2024-01-30 19:38 | NUR ---
SHIFT SUMMARY/NOTE FOR CARE COORDINATION. PATIENT WITH 2 EPISODES THIS AM OF DIARHEA PRIOR TO GOING TO DIALYSIS. HE IS AOX4, DENIES ANY OTHER ISSUES AT THIS TIME. FAMILY FRIENDS AT BEDSIDE THIS EVENING. PATIENT GIVES VERBAL PERMISSION TO SPEAK WITH HIS FRIEND HENRI PERLA [phone]. ALSO SHE UPDATES HIS ADDRESS IS [address] [place] [address] [place], [facility]. HENRI STATES SHE AND HER FAMILY ARE WILLING TO GET HIM TO HIS DR APPOINTMENTS AND DIALYSIS NEEDED. BED IN LOW POSITION, PATIENT UP AD GEORGE WITH WALKER TO BATHROOM.
[2024-01-31 03:40] VITALS: BP 168/77
[2024-01-31 05:10] LABS: BASOPHILS ABSOLUTE AUTO 0.02 K/mm3 (0.00-0.23); BASOPHILS PERCENT AUTO 0 % (0-2); EOSINOPHILS ABSOLUTE AUTO 0.21 K/mm3 (0.00-0.68); EOSINOPHILS PERCENT AUTO 2 % (0-6); Hematocrit 30.9 % (37.0-53.0); Hemoglobin 10.2 g/dL (13.5-17.5); IMMATURE GRAN ABSOLUTE AUTO 0.02 K/mm3 (0.00-0.10); IMMATURE GRAN PERCENT AUTO 0 % (0-1); LYMPHOCYTES ABSOLUTE AUTO 1.88 K/mm3 (0.84-5.20); LYMPHOCYTES PERCENT AUTO 18 % (21-46); MONOCYTES ABSOLUTE AUTO 1.05 K/mm3 (0.16-1.47); MONOCYTES PERCENT AUTO 10 % (4-13); Mean Corpuscular HGB 31.1 pg (26.0-34.0); Mean Corpuscular Volume 94 fL (80-100); NEUTROPHILS ABSOLUTE AUTO 7.12 K/mm3 (1.96-9.15); NEUTROPHILS PERCENT AUTO 69 % (41-73); Platelet Count 286 K/mm3 (150-400); RDW Coefficient Variation 13.1 % (11.7-14.2); RDW Standard Deviation 44.7 fL (35.1-46.3); Red Blood Cell Count 3.28 M/mm3 (4.30-5.90)
--- NOTE | 2024-01-31 05:24 | NUR ---
END OF SHIFT SUMMARY PT A&OX4, ABLE TO MAKE NEEDS KNOWN. C/O OVERALL FATIGUE AND WEAKNESS BUT IMPROVING. PT ABLE TO AMBULATE INDEPENDENTLY IN ROOM WITH FWW. DENIES NEEDS. NO ACUTE EVENTS OVERNIGHT.
[2024-01-31 05:38] LABS: Albumin, Blood 2.4 g/dL (3.4-5.0); Anion Gap 10 mmol/L (3-11); Blood Urea Nitrogen 54 mg/dL (8-24); CO2, Blood 30 mmol/L (21-32); Calcium, Blood 7.6 mg/dL (8.5-10.1); Chloride, Blood 98 mmol/L (98-108); Glomerular Filtration Rate 10 (60-); Glucose, Blood 218 mg/dL (70-99); Magnesium, Blood 2.2 mg/dL (1.6-2.4); Phosphorus, Blood 3.3 mg/dL (2.5-4.9); Potassium, Blood 3.9 mmol/L (3.5-5.5); Sodium, Blood 134 mmol/L (136-145)
[2024-01-31 07:38] VITALS: BP 147/72
[2024-01-31 12:55] LABS: Campylobacter Sp Not Detected (NOT DETECT); Plesiomonas Shigelloides Not Detected (NOT DETECT); Salmonella Sp Not Detected (NOT DETECT); Vibrio Sp Not Detected (NOT DETECT); Yersinia Enterocolitica Not Detected (NOT DETECT)
[2024-01-31 12:56] LABS: Adenovirus F 40/41 Not Detected (NOT DETECT); Astrovirus Not Detected (NOT DETECT); Cryptosporidium Not Detected (NOT DETECT); Cyclospora Cayetanensis Not Detected (NOT DETECT); E. Coli O157 Not Detected (NOT DETECT); Entamoeba Histolytica Not Detected (NOT DETECT); Enteroaggregative E. coli-EAEC Not Detected (NOT DETECT); Enteropathogenic E. coli-EPEC Not Detected (NOT DETECT); Enterotoxigenic E. coli-ETEC Not Detected (NOT DETECT); Giardia Lamblia Not Detected (NOT DETECT); Norovirus GI/GII Not Detected (NOT DETECT); Rotavirus A Not Detected (NOT DETECT); Sapovirus Not Detected (NOT DETECT); Shiga Toxin-prod E. coli-STEC Not Detected (NOT DETECT); Shigella/Enteroin E. coli-EIEC Not Detected (NOT DETECT); Vibrio Cholerae Not Detected (NOT DETECT)
[2024-01-31 14:57] VITALS: BP 146/65
--- NOTE | 2024-01-31 17:37 | NUR ---
No acute changes to patient status, resting wlel all shift. Pt reporting feeling better. No dialysis today. BPs stable, BP meds administred. CBGs 200s, SSI administred with meals. GI panel negative, CONTACT precautions DC'd. Awaiting discharge planning.
--- NOTE | 2024-01-31 18:22 | NUR ---
"Spiritual Care Visit | Serbian Speaking Pt. Pt. is not an latvian speaker, so I greeted him in portuguese. Offered to pray for the Pt. in Sonali and the nodded affirmation. Prayed for the Pt. and offered him a blessing in Serbian. Pt. displayed evidence of being pleased and nodded with affirmation."
[2024-01-31 19:28] VITALS: BP 159/67
[2024-02-01] VITALS (14 sets, daily range): BP systolic 120–174; BP diastolic 62–77
--- NOTE | 2024-02-01 05:12 | NUR ---
SHIFT SUMMARY PT A&OX4 AND PLEASANT. USED GENERAL LABORER PHONE AT START OF SHIFT TO ASSESS PT'S NEEDS AND ASK ABOUT PAIN. ALSO, USED GENERAL LABORER TO INFORM PT THAT I WAS HIS NURSE FOR THE NIGHT AND WHAT TO EXPECT DURING THAT TIME. NO C/O PAIN. BG WAS 281 AT HS AND NO INSULIN COVERAGE NEEDED. BP SLIGHTLY ELEVATED BUT OTHERWISE VSS. PT ABLE TO SLEEP MOST OF THE NIGHT. BED IN LOWEST POSITION AND CALL LIGHT IN REACH.
[2024-02-01 05:15] LABS: BASOPHILS ABSOLUTE AUTO 0.01 K/mm3 (0.00-0.23); BASOPHILS PERCENT AUTO 0 % (0-2); EOSINOPHILS ABSOLUTE AUTO 0.32 K/mm3 (0.00-0.68); EOSINOPHILS PERCENT AUTO 3 % (0-6); IMMATURE GRAN ABSOLUTE AUTO 0.03 K/mm3 (0.00-0.10); IMMATURE GRAN PERCENT AUTO 0 % (0-1); LYMPHOCYTES ABSOLUTE AUTO 1.64 K/mm3 (0.84-5.20); LYMPHOCYTES PERCENT AUTO 16 % (21-46); MONOCYTES PERCENT AUTO 10 % (4-13); Mean Corpuscular HGB 31.3 pg (26.0-34.0); Mean Corpuscular HGB Conc 33.3 g/dL (31.5-36.5); Mean Corpuscular Volume 94 fL (80-100); Mean Platelet Volume 11.2 fL (9.1-12.4); NEUTROPHILS ABSOLUTE AUTO 7.02 K/mm3 (1.96-9.15); NEUTROPHILS PERCENT AUTO 70 % (41-73); Platelet Count 255 K/mm3 (150-400); RDW Standard Deviation 44.7 fL (35.1-46.3); White Blood Cell Count 10.02 K/mm3 (4.00-11.30)
--- NOTE | 2024-02-01 07:05 | NUR ---
STAFF PHARMACIST CALLED AT ABOUT 0600 AND REPORTED THAT PT HAD A SLIGHT ST ELEVATION THAT WAS NOT TOO DIFFERENT THAN BASELINE. PT WAS SLEEPING AND WHEN AWAKENED, PT DENIED CP. DR VEGA NOTIFIED AND EKG ORDERED. RHYTHM STRIP AND EKG RESULTS IN PT'S CHART.
[2024-02-01] MEDS ORDERED: Loperamide HCl 2 MG Cap PO PRN (12:20)
--- NOTE | 2024-02-01 15:39 | NUR ---
SHIFT SUMMARY Patient alert & oriented x4. Reporting feeling unwell, and having an upset stomach. Patient reports watery stool, MD ordered Imodium for diarrhea and changed Humalog SSI from low to medium scale. Dr. Silvestre saw patient this morning, and patient had dialysis, 1L fluid removed. Vitals stable. Will continue plan of care.
[2024-02-01] MEDS ORDERED: Insulin Human Lispro 100 Units/ML 3ML Syringe SC SCH (16:30)
[2024-02-02 03:11] VITALS: BP 170/78
--- NOTE | 2024-02-02 04:04 | NUR ---
SHIFT SUMMARY PATIENT HAD NO ACUTE CHANGES. AXOX 4 AND INDEPENDENT IN ROOM. RUNNING INSTRUCTOR PHONE IN USE. CBG 223. TELE MONITOR SB 65, PERMA CATH RU CHEST. PIV INTACT. NO S/SX OF CHEST PAIN, SOB, AND N/V. COOPERATIVE WITH CARE. CALL LIGHT IN REACH. BED IN LOWEST POSITION. WILL CONTINUE TO MONITOR UNTIL DAY SHIFT NURSE ASSUMES CARE.
[2024-02-02 04:49] LABS: Hematocrit 31.2 % (37.0-53.0); Hemoglobin 10.4 g/dL (13.5-17.5); Mean Corpuscular HGB 30.7 pg (26.0-34.0); Mean Corpuscular HGB Conc 33.3 g/dL (31.5-36.5); Mean Corpuscular Volume 92 fL (80-100); Mean Platelet Volume 11.6 fL (9.1-12.4); Platelet Count 263 K/mm3 (150-400); RDW Coefficient Variation 13.1 % (11.7-14.2); RDW Standard Deviation 43.8 fL (35.1-46.3); Red Blood Cell Count 3.39 M/mm3 (4.30-5.90)
[2024-02-02 04:51] LABS: BASOPHILS ABSOLUTE AUTO 0.02 K/mm3 (0.00-0.23); BASOPHILS PERCENT AUTO 0 % (0-2); EOSINOPHILS ABSOLUTE AUTO 0.32 K/mm3 (0.00-0.68); EOSINOPHILS PERCENT AUTO 3 % (0-6); IMMATURE GRAN ABSOLUTE AUTO 0.03 K/mm3 (0.00-0.10); IMMATURE GRAN PERCENT AUTO 0 % (0-1); LYMPHOCYTES ABSOLUTE AUTO 1.84 K/mm3 (0.84-5.20); LYMPHOCYTES PERCENT AUTO 17 % (21-46); MONOCYTES ABSOLUTE AUTO 0.98 K/mm3 (0.16-1.47); MONOCYTES PERCENT AUTO 9 % (4-13); NEUTROPHILS PERCENT AUTO 70 % (41-73); White Blood Cell Count 10.69 K/mm3 (4.00-11.30)
[2024-02-02 05:23] LABS: Albumin, Blood 2.3 g/dL (3.4-5.0); Anion Gap 12 mmol/L (3-11); Blood Urea Nitrogen 68 mg/dL (8-24); Bun/Creatinine Ratio 10.3 (12.0-20.0); CO2, Blood 28 mmol/L (21-32); Calcium, Blood 8.2 mg/dL (8.5-10.1); Chloride, Blood 95 mmol/L (98-108); Creatinine, Blood 6.58 mg/dL (0.60-1.20); Glomerular Filtration Rate 9 (60-); Glucose, Blood 197 mg/dL (70-99); Magnesium, Blood 2.2 mg/dL (1.6-2.4); Phosphorus, Blood 3.5 mg/dL (2.5-4.9); Sodium, Blood 131 mmol/L (136-145)
[2024-02-02 08:27] VITALS: BP 172/80
[2024-02-02] MEDS ORDERED: LOPE2C PO (15:42)
--- NOTE | 2024-02-02 16:35 | NUR ---
PT DISCHARGED @1625 VIA WHEELCHAIR WITH TAXI. NEW MEDICATION OF IMMODIUM EXPLAINED TO PT. IV REMOVED BY ESTIVEN MELGAR W/O COMPLICATIONS. TELE SENT BACK. PT HAS DIALYSIS APPOINTMENT WITH AN ARRIVAL TIME OF 0720. PT AWARE OF DIALYSIS TIMES.
== END 2024-02-02 16:26 | disposition home or self-care (01) | DRG 444 ==
LOC: ER 17:28 → PCU 17:29 → MEDS 01-29 15:34
PROVIDERS: Emergency Medicine; Family Medicine; Internal Medicine Nephrology; ADMIT Internal Medicine
PROC: 5A1D70Z Performance of Urinary Filtration, Intermittent, Less than 6 Hours Per Day (ICD-10-PCS; principal; 2024-01-27)
DX: K80.62 Calculus of gallbladder and bile duct with acute cholecystitis without obstruction (principal); G93.41 Metabolic encephalopathy; N18.6 End stage renal disease; I12.0 Hypertensive chronic kidney disease with stage 5 chronic kidney disease or end stage renal disease; J90 Pleural effusion, not elsewhere classified; N25.81 Secondary hyperparathyroidism of renal origin; E87.1 Hypo-osmolality and hyponatremia; E87.20 Acidosis, unspecified; D63.1 Anemia in chronic kidney disease; E78.5 Hyperlipidemia, unspecified; E87.5 Hyperkalemia; E11.22 Type 2 diabetes mellitus with diabetic chronic kidney disease; E11.649 Type 2 diabetes mellitus with hypoglycemia without coma; K52.9 Noninfective gastroenteritis and colitis, unspecified; Z91.048 Other nonmedicinal substance allergy status; Z99.2 Dependence on renal dialysis; Z98.890 Other specified postprocedural states; Z79.899 Other long term (current) drug therapy; Z79.84 Long term (current) use of oral hypoglycemic drugs; Z89.412 Acquired absence of left great toe; Z89.432 Acquired absence of left foot; E86.9 Volume depletion, unspecified
CPT/HCPCS: 0241U; 36415; 71045; 74177; 76705; 78226; 80053; 80069; 81001; 82947; 83690; 83735; 83880; 84100; 84132; 84145; 85025; 85610; 87507; 93005; 93010; 96374-59; 96375-59; 97110; 97116; 97162; 97530; 99285-25; A9270; A9537; G0378; J0780; J0881; J1610; J1644; J2405; J2543; J7050; J7070; Q9967

== ENCOUNTER → 2024-03-04 | Outpatient (CLI) | payer OTHER ==
[~2024-03-04] MED LIST changes: +ASPI81CH PO; +CLOP75 PO; +GLIP2.5ER PO; +HYDR10 PO; +JARDIANCE10 MG PO; +LOPE2C PO; +METF500 PO; +ONDA4; +ONDA4 SL; +ONDA4ODT MM; +PIOG15 PO; +Phenergan25 M1 PO; +Vitamin B Comple1 EA PO
[2024-03-04 12:18] LABS: BASOPHILS ABSOLUTE AUTO 0.03 K/mm3 (0.00-0.23); BASOPHILS PERCENT AUTO 0 % (0-2); EOSINOPHILS ABSOLUTE AUTO 0.31 K/mm3 (0.00-0.68); EOSINOPHILS PERCENT AUTO 4 % (0-6); Hematocrit 33.6 % (37.0-53.0); Hemoglobin 10.9 g/dL (13.5-17.5); IMMATURE GRAN ABSOLUTE AUTO 0.03 K/mm3 (0.00-0.10); IMMATURE GRAN PERCENT AUTO 0 % (0-1); LYMPHOCYTES ABSOLUTE AUTO 1.88 K/mm3 (0.84-5.20); LYMPHOCYTES PERCENT AUTO 21 % (21-46); MONOCYTES ABSOLUTE AUTO 0.79 K/mm3 (0.16-1.47); MONOCYTES PERCENT AUTO 9 % (4-13); Mean Corpuscular HGB Conc 32.4 g/dL (31.5-36.5); Mean Corpuscular Volume 96 fL (80-100); Mean Platelet Volume 10.8 fL (9.1-12.4); NEUTROPHILS ABSOLUTE AUTO 5.88 K/mm3 (1.96-9.15); NEUTROPHILS PERCENT AUTO 66 % (41-73); Platelet Count 332 K/mm3 (150-400); RDW Coefficient Variation 13.2 % (11.7-14.2); RDW Standard Deviation 45.9 fL (35.1-46.3); Red Blood Cell Count 3.52 M/mm3 (4.30-5.90); White Blood Cell Count 8.92 K/mm3 (4.00-11.30)
[2024-03-04 12:31] LABS: Albumin/Globulin Ratio 0.7 (0.8-1.8); Bilirubin, Total 0.4 mg/dL (0.1-1.0); Bun/Creatinine Ratio 7.2 (12.0-20.0); Calcium, Blood 8.4 mg/dL (8.5-10.1); Creatinine, Blood 2.64 mg/dL (0.60-1.20); Globulin, Blood 4.3 g/dL (2.2-4.0); Potassium, Blood 3.8 mmol/L (3.5-5.5); Total Protein, Blood 7.3 g/dL (6.4-8.2)
== END ==
LOC: LAB 12:15 → LAB SHORT 12:15
PROVIDERS: Physician Assistant
DX: D63.8 Anemia in other chronic diseases classified elsewhere (principal); I50.32 Chronic diastolic (congestive) heart failure; N18.6 End stage renal disease; Z99.2 Dependence on renal dialysis
CPT/HCPCS: 80053; 83880; 85025

== ENCOUNTER 2024-07-23 08:33 | Emergency (ER) | payer OTHER ==
[~2024-07-23] VITALS: Ht 160 cm; Wt 68.0 kg
[2024-07-23 10:03] VITALS: BP 186/83
[2024-07-23] MEDS ORDERED: TRIDERM28.4 GM TOP (10:19)
[2024-07-25] MEDS ORDERED: BASAGLAR K100 UNIT/3 (14:10)
== END 2024-07-23 10:22 | disposition home or self-care (01) ==
LOC: ER 08:33
DX: L23.1 Allergic contact dermatitis due to adhesives (principal); E11.22 Type 2 diabetes mellitus with diabetic chronic kidney disease; I12.0 Hypertensive chronic kidney disease with stage 5 chronic kidney disease or end stage renal disease; N18.6 End stage renal disease; E78.5 Hyperlipidemia, unspecified; Z79.02 Long term (current) use of antithrombotics/antiplatelets; Z79.82 Long term (current) use of aspirin; Z79.899 Other long term (current) drug therapy
CPT/HCPCS: 99282

== ENCOUNTER → 2024-08-26 | Outpatient (CLI) | payer OTHER ==
[~2024-08-26] MED LIST changes: +ACET325 PO; +BASAGLAR K100 UNIT/3; +BUME2 PO; +CEPH500 PO; +DOCU100 PO; +DOXY100 PO; +LOKELMA10 GM PO; +TAZICEF2 G2 HE; +TRIDERM28.4 GM TOP; +VANCOMYCIN HCL1 G1 IV
[2024-08-26 13:10] LABS: Albumin, Blood 3.9 g/dL (3.4-5.0); Bilirubin, Total 0.4 mg/dL (0.1-1.0); Bun/Creatinine Ratio 6.4 (12.0-20.0); Calcium, Blood 8.8 mg/dL (8.5-10.1); Total Protein, Blood 7.9 g/dL (6.4-8.2)
[2024-08-26 13:37] LABS: Potassium, Blood 6.2 mmol/L (3.5-5.5)
[2024-08-26 13:38] LABS: Creatinine, Blood 11.96 mg/dL (0.60-1.20)
== END | disposition home or self-care (01) ==
LOC: LAB SHORT 12:37 → LAB 12:37
PROVIDERS: Internal Medicine Endocrinology, Diabetes & Metabolism
DX: E11.65 Type 2 diabetes mellitus with hyperglycemia (principal)
CPT/HCPCS: 80053; 83036

== ENCOUNTER 2024-12-02 17:01 | Observation (INO) | payer OTHER ==
[2024-12-02] VITALS (33 sets, daily range): BP systolic 123–213; BP diastolic 73–111
[~2024-12-02] VITALS: Ht 162.6 cm; Wt 56.3 kg
[2024-12-02] MEDS ORDERED: Nitroglycerin/D5W 250 ML IV SCH (17:15)
[2024-12-02] MEDS ORDERED: Ondansetron HCl 2 MG / ML 2ML Vial IV ONE (17:15)
[2024-12-02] MEDS ORDERED: Furosemide 10 MG/ML 4ML Vial IV ONE (17:15)
[2024-12-02] MEDS ORDERED: Nitroglycerin 0.4 MG SUBL SL PRN (17:15)
[2024-12-02 17:22] LABS: Bicarbonate Venous 27.9 mmol/L (24.0-30.0); pH Blood Venous 7.39 (7.34-7.37)
[2024-12-02 17:25] LABS: Calcium, Ionized (POC) 0.95 mmol/L (1.10-1.46); Chloride (POC) 96 mmol/L (98-108); Creatinine (POC) 7.7 mg/dL (0.8-1.3); Glucose (ISTAT POC) 166 mg/dL (70-99); Hemoglobin (POC) 11.6 g/dL (13.5-17.5); Potassium (POC) 4.1 mmol/L (3.5-5.5); Sodium (POC) 134 mmol/L (135-148); Total CO2 (POC) 28 mmol/L (21-32)
[2024-12-02 17:36] LABS: BASOPHILS ABSOLUTE AUTO 0.03 K/mm3 (0.00-0.23); BASOPHILS PERCENT AUTO 0 % (0-2); EOSINOPHILS ABSOLUTE AUTO 0.38 K/mm3 (0.00-0.68); EOSINOPHILS PERCENT AUTO 3 % (0-6); Hematocrit 32.1 % (37.0-53.0); Hemoglobin 10.8 g/dL (13.5-17.5); IMMATURE GRAN ABSOLUTE AUTO 0.04 K/mm3 (0.00-0.10); IMMATURE GRAN PERCENT AUTO 0 % (0-1); LYMPHOCYTES ABSOLUTE AUTO 2.75 K/mm3 (0.84-5.20); LYMPHOCYTES PERCENT AUTO 23 % (21-46); MONOCYTES ABSOLUTE AUTO 0.97 K/mm3 (0.16-1.47); MONOCYTES PERCENT AUTO 8 % (4-13); Mean Corpuscular HGB 32.1 pg (26.0-34.0); Mean Corpuscular HGB Conc 33.6 g/dL (31.5-36.5); Mean Corpuscular Volume 96 fL (80-100); Mean Platelet Volume 12.1 fL (9.1-12.4); NEUTROPHILS ABSOLUTE AUTO 7.61 K/mm3 (1.96-9.15); NEUTROPHILS PERCENT AUTO 65 % (41-73); Platelet Count 310 K/mm3 (150-400); RDW Coefficient Variation 15.4 % (11.7-14.2); RDW Standard Deviation 53.2 fL (35.1-46.3); Red Blood Cell Count 3.36 M/mm3 (4.30-5.90); White Blood Cell Count 11.78 K/mm3 (4.00-11.30)
[2024-12-02 18:06] LABS: Bun/Creatinine Ratio 6.3 (12.0-20.0); Calcium, Blood 8.3 mg/dL (8.5-10.1); Creatinine, Blood 7.46 mg/dL (0.60-1.20); Potassium, Blood 4.1 mmol/L (3.5-5.5)
[2024-12-02 19:02] LABS: Influenza A, PCR NEGATIVE (NEGATIVE); Influenza B, PCR NEGATIVE (NEGATIVE); Resp Syncytial Virus, PCR NEGATIVE (NEGATIVE); SARS-Cov-2 (COVID-19) PCR, MMC NEGATIVE (NEGATIVE)
--- NOTE | 2024-12-02 19:02 | NUR ---
CONSULT ON CHART. ORDERS RECIEVED FROM DR ROBLES FOR DIALYSIS SOON PATIENT TRANSPORTED TO FLOOR. MACHINE IS PRIMED, TESTED AND READY NOW.
[2024-12-02] MEDS ORDERED: Ondansetron HCl 2 MG / ML 2ML Vial IV PRN (19:20)
[2024-12-02] MEDS ORDERED: HydrALAZINE HCl 20 MG / ML 1ML Vial IV ONE (20:00)
[2024-12-02] MEDS ORDERED: Losartan Potassium 50 MG Tab PO SCH (21:00)
[2024-12-02] MEDS ORDERED: CloNIDine 0.1 MG Tab PO SCH (21:00)
[2024-12-02] MEDS ORDERED: FLU VACC TS2024-25(6MOS UP)/PF 45 MCG/0.5 ML SYRINGE IM ONE (21:00)
--- NOTE | 2024-12-02 21:00 | NUR ---
ADMISSION/ARRIVAL NOTE PT ARRIVED FROM ED ON BED AT 2056 WITH NITROGLYCERINE DRIP INFUSING AT 160MCG/MIN. FIRST BP WAS 202/98. WILL TITRATE. PT GIVEN ORDERED 10MG HYDRALAZINE IV PUSH. BP ON BIPAP 12/6 45%, PRODUCING SATURATION OF 100%. NO CHEST PAIN, SOB, N/V, AB PAIN. PT IS DIAPHORETIC WITH CHILLS. TEMP IS 96.4. WARMS BLANKETS APPLIED. PT WILL BE DIALYZED TONIGHT. BLOOD CULTURES DRAWN BY DUPLICATE MAKER, WHO WAS IN ROOM BY END OF ASSESSMENTS.
--- NOTE | 2024-12-02 23:33 | NUR ---
UPDATE DIALYSIS STARTED AT 2155. NITRO GTT TITRATED DOWN AND OFF WITHIN 45MIN. PT BP HOLDING, SBP 120-150, DIALYSIS IS CLOSE TO FINISHING. RENAL U/S WILL BE COMPLETED IN THE MORNING.
[2024-12-03] VITALS (52 sets, daily range): BP systolic 106–192; BP diastolic 67–116
[2024-12-03] MEDS ORDERED: Insulin Human Lispro 100 Units/ML 3ML Syringe SC SCH
[2024-12-03] MEDS ORDERED: HydrALAZINE HCl 20 MG / ML 1ML Vial IV PRN (03:45)
[2024-12-03 04:25] LABS: BASOPHILS ABSOLUTE AUTO 0.03 K/mm3 (0.00-0.23); BASOPHILS PERCENT AUTO 1 % (0-2); EOSINOPHILS ABSOLUTE AUTO 0.11 K/mm3 (0.00-0.68); EOSINOPHILS PERCENT AUTO 2 % (0-6); Hematocrit 30.2 % (37.0-53.0); Hemoglobin 10.2 g/dL (13.5-17.5); IMMATURE GRAN PERCENT AUTO 0 % (0-1); LYMPHOCYTES ABSOLUTE AUTO 0.84 K/mm3 (0.84-5.20); LYMPHOCYTES PERCENT AUTO 14 % (21-46); MONOCYTES ABSOLUTE AUTO 0.61 K/mm3 (0.16-1.47); MONOCYTES PERCENT AUTO 10 % (4-13); Mean Corpuscular HGB 32.6 pg (26.0-34.0); Mean Corpuscular HGB Conc 33.8 g/dL (31.5-36.5); Mean Corpuscular Volume 97 fL (80-100); Mean Platelet Volume 11.9 fL (9.1-12.4); NEUTROPHILS ABSOLUTE AUTO 4.48 K/mm3 (1.96-9.15); NEUTROPHILS PERCENT AUTO 74 % (41-73); Platelet Count 281 K/mm3 (150-400); RDW Coefficient Variation 15.2 % (11.7-14.2); RDW Standard Deviation 53.5 fL (35.1-46.3); Red Blood Cell Count 3.13 M/mm3 (4.30-5.90); White Blood Cell Count 6.07 K/mm3 (4.00-11.30)
[2024-12-03 04:33] LABS: Albumin, Blood 3.4 g/dL (3.4-5.0); Anion Gap 9 mmol/L (3-11); Blood Urea Nitrogen 29 mg/dL (8-24); Bun/Creatinine Ratio 5.4 (12.0-20.0); CO2, Blood 33 mmol/L (21-32); Calcium, Blood 8.2 mg/dL (8.5-10.1); Chloride, Blood 95 mmol/L (98-108); Creatinine, Blood 5.38 mg/dL (0.60-1.20); Glomerular Filtration Rate 12 (60-); Glucose, Blood 98 mg/dL (70-99); Magnesium, Blood 2.2 mg/dL (1.6-2.4); Phosphorus, Blood 4.6 mg/dL (2.5-4.9); Potassium, Blood 4.4 mmol/L (3.5-5.5); Sodium, Blood 133 mmol/L (136-145)
[2024-12-03] MEDS ORDERED: FLU VACC TS2024-25(6MOS UP)/PF 45 MCG/0.5 ML SYRINGE IM ONE (05:25)
--- NOTE | 2024-12-03 07:55 | NUR ---
SHIFT SUMMARY PT LYING IN BED SLEEPING. AWAKES TO VOICE AND IS ALERT, THOUGH SLEEPY, AND ORIENTED TO ALL. PT DOES NOT SPEAK INDONESIAN. TRANSLATION KAM ON PHONE WAS UTILIZED THROUGHOUT SHIFT FOR BASIC COMMUNICATION. NO PAIN. MAEW. P C/O OF NUMBNESS AND TINGLING IN BOTH FEET/LOWER LEGS DUE TO NEUROPATHY. HR SINUS RHYTHM IN THE 70'S WITH STABLE TO ELEVATED BP, SBP 140-170 SINCE LAST ADMINISTRATION OF PRN HYDRALAZINE SEVERAL HOURS AGO. OF NOTE, PT CAME TO UNIT LAST NIGHT AT 2100 WITH SBP'S OVER 200 AND PT WAS DIAPHORETIC. AFTER DIALYSIS FINISHED AT MIDNIGHT, BP QUICKLY INCREASED AND PT BECAME DIAPHORETIC AGAIN. PT ON 2L NC WITH SATURATIONS OF 100%. NO CHEST PAIN OR SOB. NO N/V. NO AB PAIN. NO URINE OUTPUT. PT WAS BLADDER SCANNED- 230ML. PT IS SCHEDULED FOR RENAL U/S THIS MORNING, WELL AN ADDITIONAL ROUND OF DIALYSIS. PT'S K WAS 3.2 THIS MORNING AND REPLACEMENT WAS ORDERED. PT HAS CALL LIGHT. REPORT GIVEN TO ONCOMING NURSE.
[2024-12-03] MEDS ORDERED: Clopidogrel Bisulfate 75 MG Tab PO SCH (09:00)
[2024-12-03] MEDS ORDERED: Aspirin 81 MG Chew PO SCH (09:00)
[2024-12-03] MEDS ORDERED: Atorvastatin 40 MG Tab PO SCH (09:00)
[2024-12-03] MEDS ORDERED: Heparin Sodium 5000 Units/ML 1ML MDV SC SCH (09:00)
--- NOTE | 2024-12-03 09:31 | NUR ---
MORNING ASSESSMENT - UPDATE TOOK OVER CARE FOR PT. PT IS AWAKE AND A&OX4, RESPONDS TO COMMANDS APPROPRIATELY. JAPANESE SPEAKING ONLY, DRYING CAN WORKER PHONE USED TO COMMUNICATE WITH PATIENT. RENAL ULTRASOUND DONE AT BEDSIDE. PT RESPONDED WELL. MEDS AND BREAKFAST GIVEN TO THE PATIENT WITH NO ISSUES SWALLOWING OR ASPIRATION. PT ON 2L O2 NC SATTING AT 98%. NO EDEMA, NUMBNESS AND TINGLING HAS SUBSIDED THIS AM. SBP 150-170 SINCE 0700. PT TAKEN TO DIALYSIS AT 0900.
--- NOTE | 2024-12-03 12:57 | NUR ---
UPDATE PT RETURNED FROM DIALYSIS AT 1220. SBP REMAINING IN THE 140-170 RANGE. PT WAS ON ROOM AIR, BUT PLACED BACK ON 2L O2 DURING DIALYSIS AND TITRATED DOWN TO 1L O2 BACK IN ICU. DR. DAVIDSON CAME TO THE BEDSIDE TO TRANSLATE/COMMUNICATE CARE PLAN. PT TOLERATED A BED BATH AND LINEN CHANGE. NOW SITTING UP EATING LUNCH AND TOLERATING MEDICATIONS. CALL LIGHT IN REACH. NEEDS MET AT THIS TIME.
--- NOTE | 2024-12-03 15:21 | NUR ---
PT DISCHARGED TO CAB SERVICE TO TAKE HIM TO HIS VEHICLE AT THE DIALYSIS CENTER. DISCHARGE INFORMATION PRINTED IN SAUDI ARABIAN AND WILLIAM BREWSTER FROM PCU CAME OVER TO SPEAK WITH PATIENT REGARDING D/C PAPERWORK AND PLAN FOR TOMORROW. PT EXPRESSED UNDERSTANDING. IV'S DC'D AND DRESSED, W/C TO CAB WITH NEEDLE PUNCH OPERATOR.
[2024-12-07 05:05] LABS: ALDOSTERONE 18.6 ng/dL; RENIN ACTIVITY <0.1 ng/mL/hr
== END 2024-12-03 15:13 | disposition home or self-care (01) ==
LOC: ER 17:01 → ICUE 17:02
PROVIDERS: Emergency Medicine; Internal Medicine Nephrology; Nurse Practitioner Acute Care; ADMIT Student in an Organized Health Care Education/Training Program
DX: I13.2 Hypertensive heart and chronic kidney disease with heart failure and with stage 5 chronic kidney disease, or end stage renal disease (principal); E11.22 Type 2 diabetes mellitus with diabetic chronic kidney disease; I50.33 Acute on chronic diastolic (congestive) heart failure; N18.6 End stage renal disease; I67.4 Hypertensive encephalopathy; J81.1 Chronic pulmonary edema; E78.5 Hyperlipidemia, unspecified; I25.2 Old myocardial infarction; I16.1 Hypertensive emergency; Z79.4 Long term (current) use of insulin; Z79.82 Long term (current) use of aspirin; Z79.899 Other long term (current) drug therapy; Z99.2 Dependence on renal dialysis
CPT/HCPCS: 0241U; 36415; 71045; 80047; 80048; 80069; 82088; 82803; 82947; 83735; 83880; 84244; 84484; 85014; 85025; 87040; 90656; 93005; 93010; 93975; 94660; 94762; 96365; 96366; 96372; 96375; 96376; 99291-25; A9270; G0008; G0257; G0378; J0360; J1644; J1940; J2405

== ENCOUNTER 2024-12-22 07:39 | Emergency (ER) | payer OTHER ==
[~2024-12-22] VITALS: Ht 157.5 cm; Wt 58.1 kg
[2024-12-22] MEDS ORDERED: Morphine Sulfate 4 MG/1 ML Injection IV ONE (07:50)
[2024-12-22 07:56] LABS: Hematocrit 30.1 % (37.0-53.0); Hemoglobin 10.3 g/dL (13.5-17.5); Mean Corpuscular HGB 32.8 pg (26.0-34.0); Mean Corpuscular HGB Conc 34.2 g/dL (31.5-36.5); Mean Corpuscular Volume 96 fL (80-100); Mean Platelet Volume 12.3 fL (9.1-12.4); Platelet Count 237 K/mm3 (150-400); RDW Coefficient Variation 14.6 % (11.7-14.2); RDW Standard Deviation 48.8 fL (35.1-46.3); Red Blood Cell Count 3.14 M/mm3 (4.30-5.90)
[2024-12-22 07:57] LABS: BASOPHILS ABSOLUTE AUTO 0.03 K/mm3 (0.00-0.23); BASOPHILS PERCENT AUTO 0 % (0-2); EOSINOPHILS ABSOLUTE AUTO 0.33 K/mm3 (0.00-0.68); EOSINOPHILS PERCENT AUTO 4 % (0-6); IMMATURE GRAN ABSOLUTE AUTO 0.01 K/mm3 (0.00-0.10); IMMATURE GRAN PERCENT AUTO 0 % (0-1); LYMPHOCYTES ABSOLUTE AUTO 1.18 K/mm3 (0.84-5.20); LYMPHOCYTES PERCENT AUTO 14 % (21-46); MONOCYTES ABSOLUTE AUTO 0.66 K/mm3 (0.16-1.47); MONOCYTES PERCENT AUTO 8 % (4-13); NEUTROPHILS ABSOLUTE AUTO 6.03 K/mm3 (1.96-9.15); NEUTROPHILS PERCENT AUTO 73 % (41-73); White Blood Cell Count 8.24 K/mm3 (4.00-11.30)
[2024-12-22 08:02] VITALS: BP 179/93
[2024-12-22 08:13] LABS: BASOPHILS PERCENT MAN 0 % (0-2); EOSINOPHILS ABSOLUTE MAN 0.41 K/mm3 (0.00-0.68); EOSINOPHILS PERCENT MAN 5 % (0-6); LYMPHOCYTES ABSOLUTE MAN 1.15 K/mm3 (0.84-5.20); LYMPHOCYTES PERCENT MAN 14 % (21-46); MONOCYTES ABSOLUTE MAN 0.57 K/mm3 (0.16-1.47); MONOCYTES PERCENT MAN 7 % (4-13); NEUTROPHILS ABSOLUTE MAN 6.09 K/mm3 (1.96-9.15); SEG NEUTROPHILS PERCENT MAN 74 % (41-73); TOTAL CELLS COUNTED 100
[2024-12-22 08:15] LABS: Bun/Creatinine Ratio 6.4 (12.0-20.0); Calcium, Blood 7.9 mg/dL (8.5-10.1); Creatinine, Blood 6.4 mg/dL (0.60-1.20); Potassium, Blood 5.1 mmol/L (3.5-5.5)
[2024-12-22] MEDS ORDERED: Diphth,Pertuss(Acell),Tet Vac 0.5 ML VIAL IM ONE (08:15)
[2024-12-22] MEDS ORDERED: Calcium/Vit D 600 mg-400 Unit Tab PO ONE (09:10)
[2024-12-22] MEDS ORDERED: ACET500 PO (09:20)
== END 2024-12-22 10:15 | disposition home or self-care (01) ==
LOC: ER 07:39
PROVIDERS: Emergency Medicine
DX: M79.652 Pain in left thigh (principal); M25.552 Pain in left hip; J81.1 Chronic pulmonary edema; Z59.89 Other problems related to housing and economic circumstances; E11.9 Type 2 diabetes mellitus without complications; I10 Essential (primary) hypertension; E78.5 Hyperlipidemia, unspecified; Z79.899 Other long term (current) drug therapy; Z79.82 Long term (current) use of aspirin; Z79.02 Long term (current) use of antithrombotics/antiplatelets; Z79.83 Long term (current) use of bisphosphonates; V49.40XA Driver injured in collision with unspecified motor vehicles in traffic accident, initial encounter
CPT/HCPCS: 70450; 71045; 72170; 73552; 80048; 82330; 85025; 90471; 90715; 96374; 99285-25; A9270; J2270